=== PATIENT | female | born 1935 | race Caucasian/White ===

== ENCOUNTER 2018-01-05 14:01 | Inpatient (IN) ==
[2018-01-05] MEDS ORDERED: NS 1,000 ML IV ONE (14:23)
[2018-01-05] MEDS ORDERED: INSULIN REGULAR, HUMAN 100 UNIT/ML INJECTION IVP ONE ×2 (14:24→18:05)
--- OUTSIDE RECORDS SUMMARY | 2018-01-05 14:38 | External Medical Summary | Referral Summary ---
:1935 Author Organization [facility], [place] Address [address] [place] [address] [place] [id number] Care Team Providers Name Role Phone Lj Claros V Primary Care Physician Encounter VC Date(s): 11/14/16 - 11/14/16 [facility] [place] [phone]- [place] Discharge Diagnosis: Urine frequency Discharge Diagnosis: Benign essential hypertension Discharge Diagnosis: Medication monitoring encounter Discharge Diagnosis: Osteoarthrosis Discharge Diagnosis: Polypharmacy Discharge Diagnosis: Diabetic retinopathy Discharge Diagnosis: Diabetic neuropathy Discharge Diagnosis: Peripheral edema Discharge Diagnosis: At risk for noncompliance Discharge Disposition: 01-Home or Self Care Attending Physician: Lj Claros MD Admitting Physician: Lj Claros MD Vital Signs Most recent to oldest [Reference Range]: 1 Peripheral Pulse Rate [60-100 bpm] 89 bpm (11/14/16 2:52 PM) Respiratory Rate [14-20 br/min] 18 br/min (11/14/16 2:52 PM) Blood Pressure [90-140/60-90 mmHg] 154/70 mmHg *HI* (11/14/16 2:52 PM) SpO2 98 % (11/14/16 2:52 PM) Problem List Condition Effective Dates Status Health Status Informant Allergy(Confirmed) Active Benign essential Active hypertension(Confirmed) Diabetes W/o Complication Type Active 2(Confirmed) Diabetic retinopathy(Confirmed) Active Osteoarthrosis Lower Leg(Confirmed) Active Overweight(Confirmed) Active Allergies, Adverse Reactions, Alerts No Known Allergies Medications aspirin 81 mg, Oral, Daily, 0 Refill(s) Start Date: 12/23/13 Status: OrderedBD ULTRA-FINE NDL 12.0EET21K See Instructions, USE ONE FOUR TIMES A DAY, # 100 unknown unit, 5 Refill(s), eRx : [facility] #[id number], USE ONE FOUR TIMES A DAY Start Date: 01/08/16 Status: OrderedBD ULTRA-FINE NDL 12.4IQF26C See Instructions, USE ONE FOUR TIMES A DAY, # 100 unknown unit, 4 Refill(s), eRx : [facility] #[id number], USE ONE FOUR TIMES A DAY Start Date: 10/23/16 Status: OrderedBD ULTRA-FINE NDL 12.2JFJ54R BD ULTRA-FINE NDL 12.6XEJ45V, See Instructions, USE PEN NEEDLE FOUR TIMES A DAY. DX E11.8, # 1 boxes, 3 Refill(s), Pharmacy: [facility] #[id number], USE PEN NEEDLE FOUR TIMES A DAY. DX E11.8 Start Date: 05/19/15 Status: OrderedBD ULTRAFINE NEEDLES BD ULTRAFINE NEEDLES, See Instructions, USE PEN NEEDLE FOUR TIMES DAILY. DX: 250.02, # 1 boxes, 2 Refill(s), Pharmacy: [facility] #[id number], USE PEN NEEDLE FOUR TIMES DAILY. DX: 250.02 Start Date: 11/09/14 Status: Ordereddicyclomine 10 mg oral capsule 10 mg 1 caps, Oral, q6hr, as needed., # 360 caps, 1 Refill(s), Pharmacy: [facility], 1 caps Oral q6hr,Instr:as needed. Start Date: 05/16/15 Status: OrderedGlucometer strips (DME) DME Item Pt. uses onetouch ultra test strips 2 times a day. DX E11.8, See Instructions, # 100 Each, 0 Refill(s), Pharmacy: [facility] #[id number], Pt. uses onetouch ultra test strips 2 times a day. DX E11.8, Supply Start Date: 06/07/16 Status: OrderedHumaLOG KwikPen 100 units/mL subcutaneous solution See Instructions, INJECT 30 TO 35 UNITS THREE TIMES DAILY BEFORE MEALS e11.9, # 10 mL, 3 Refill(s), Pharmacy: [facility] #[id number], INJECT 30 TO 35 UNITS THREE TIMES DAILY BEFORE MEALS e11.9 Start Date: 06/28/16 Status: OrderedLantus Solostar Pen 100 units/mL subcutaneous solution See Instructions, INJECT 72 UNITS SUBCUTANEOUSLY AT BEDTIME, # 10 mL, 1 Refill(s ), Pharmacy: [facility] #[id number], INJECT 72 UNITS SUBCUTANEOUSLY AT BEDTIME Start Date: 11/14/16 Status: OrderedLotrel 5 mg-10 mg oral capsule See Instructions, 1 caps Oral Daily, # 90 caps, 3 Refill(s), Pharmacy: [facility] Start Date: 05/16/15 Status: OrderedMiscellaneous DME DME Item BD ULTRA FINE NDL 12.9XLA46J USE 1 PEN NEEDLE QID DX: 250.02 [facility], See Instructions, # 1 Each, 2 Refill(s), Pharmacy: [facility] # [id number], BD ULTRA FINE NDL 12.2UUQ54R; USE 1 PEN NEEDLE QID ; DX: 250.02; [facility], Supply Start Date: 12/29/13 Status: OrderedONETOUCH ULTRA TEST STRIPS See Instructions, TEST TWO TIMES A DAY, DX E11.8, # 100 strip, 2 Refill(s), eRx : [facility] #[id number], TEST TWO TIMES A DAY, DX E11.8 Start Date: 06/07/16 Status: Orderedpravastatin 40 mg oral tablet 40 mg 1 tabs, Oral, Bedtime (once a day), # 90 tabs, 1 Refill(s), Pharmacy: [facility], 1 tabs Oral Bedtime (once a day) Start Date: 06/02/15 Status: Orderedvitamin A See Instructions, 8,000 units daily by oral route, 0 Refill(s) Start Date: 12/23/13 Status: OrderedVitamin B-12 1,000 mcg, 0 Refill(s) Start Date: 12/23/13 Status: OrderedVitamin C 500 mg, Oral, Daily, 0 Refill(s) Start Date: 12/23/13 Status: Orderedvitamin E 100 Intl_Units, Oral, Daily, 0 Refill(s) Start Date: 12/23/13 Status: OrderedZaroxolyn 5 mg oral tablet 5 mg 1 tabs, Oral, Daily, # 90 tabs, 0 Refill(s), Pharmacy: [facility] # [id number], 1 tabs Oral Daily Start Date: 04/17/16 Status: OrderedZimmerwraps Zimmerwraps, See Instructions, Apply wrap as instructed in the morning and remove in the evening., #2 Each, 0 Refill(s) Start Date: 04/17/16 Status: Ordered Results Chemistry Most recent to oldest [Reference Range]: 1 Sodium Lvl [135-144 mEq/L] 135 mEq/L (11/14/16 3:54 PM) Potassium Lvl [3.5-5.2 mEq/L] 4.3 mEq/L (11/14/16 3:54 PM) Chloride [99-111 mEq/L] 102 mEq/L (11/14/16 3:54 PM) CO2 [22-31 mEq/L] 22 mEq/L (11/14/16 3:54 PM) AGAP [3-20 mEq/L] 11 mEq/L (11/14/16 3:54 PM) BUN [10-20 mg/dL] 19 mg/dL (11/14/16 3:54 PM) Glucose Lvl [70-99 mg/dL] 388 mg/dL *HI* (11/14/16 3:54 PM) Creatinine Lvl [0.57-1.11 mg/dL] 1.16 mg/dL *HI* (11/14/16 3:54 PM) eGFR [>60 mL/min] 45 mL/min 1 *ABN* (11/14/16 3:54 PM) Calcium Lvl [8.4-10.2 mg/dL] 9.0 mg/dL (11/14/16 3:54 PM) Hgb A1c [4.1-5.6 %] 11.6 % *HI* (11/14/16 3:54 PM) eAvg Glucose 286.2 mg/dL (11/14/16 3:54 PM) 1Result Comment: Multiply eGFR results by 1.21 for race.Urinalysis Most recent to oldest [Reference Range]: 1 UA Color Yellow (11/14/16 4:46 PM) UA Appear Clear (11/14/16 4:46 PM) UA pH [5.0-8.0] 5.0 (11/14/16 4:46 PM) UA Leuk Est [Negative] Negative (11/14/16 4:46 PM) UA Nitrite [Negative] Negative (11/14/16 4:46 PM) UA Protein [Negative] Negative (11/14/16 4:46 PM) UA Glucose [Negative] Pos 3+ *ABN* (11/14/16 4:46 PM) UA Ketones [Negative] Negative (11/14/16 4:46 PM) UA Urobilinogen [<1.0 mg/dL] 0.2 mg/dL (11/14/16 4:46 PM) UA Bili [Negative] Negative (11/14/16 4:46 PM) UA Blood [Negative] Negative (11/14/16 4:46 PM) UA Spec Grav [1.003-1.030] 1.035 *HI* (11/14/16 4:46 PM) Type Clean Catch (11/14/16 4:46 PM) Immunizations Given and Recorded Vaccine Date Status Refusal Reason influenza virus vaccine, inactivated 04/17/16 Given influenza virus vaccine, inactivated 05/02/15 Given influenza virus vaccine, live 05/21/13 Given influenza virus vaccine, live 06/18/12 Given pneumococcal 13-valent conjugate vaccine 05/02/15 Given pneumococcal 23-polyvalent vaccine 01/22/11 Recorded tetanus-diphth toxoids (Td) adult/adol 03/10/07 Recorded Procedures Procedure Date Related Diagnosis Body Site Hysterectomy Joint replacement Knee replacement L Knee replacement R Tonsillectomy Social History Social History Type Response Smoking Status Never smoker Assessment and Plan Extracted from: Title: New Patient Visit Author: Lj Claros MD Date: 11/14/16 Impression and Plan Diagnosis Osteoarthrosis (QWB88-AJ M19.90, Discharge, Medical). Peripheral edema (LAP61-XD R60.9, Discharge, Medical). Urine frequency (WZX56-UJ R35.0, Discharge, Medical). Polypharmacy (XKJ37-FH Z79.899, Discharge, Medical). At risk for noncompliance (ILD53-RW Z91.89, Discharge, Medical). Diabetic neuropathy (EIQ04-UJ E11.40, Discharge, Medical). Medication monitoring encounter (BYV81-OY Z51.81, Discharge, Medical). Benign essential hypertension (REZ90-XU I10, Discharge, Medical). Diabetic retinopathy (WFU44-SI E11.319, Discharge, Medical). Orders Orders (Selected) Outpatient Orders Future (On Hold) Albumin/Creatinine Ratio, Urine: BMP: Hgb A1c: Urinalysis with Culture if Indicated: .
[2018-01-05] MEDS ORDERED: INSULIN REGULAR, HUMAN 100 UNIT/ML INJECTION SQ SCH ×2 (16:15→17:26)
--- NOTE | 2018-01-05 16:33 | Emergency Department Report ---
Weakness HPI - General Chief complaint: Medical Emergency Stated complaint: High blood sugar, weakness Source: patient, family Mode of arrival: EMS Limitations: no limitations - History of Present Illness HPI Narrative: PT presents from home per EMS after she developed increasing weakness and was unable to get herself off the toilet nor could her assist. PT is a known diabetic and EMS had a BG of 585. PT began receiving fluids. She reports she has been taking her medications including her insulin. She denies fever, cough, nausea, vomiting, or diarrhea. She does report eating lots of BBQ. Complaint: generalized weakness Onset (ago): hour(s) - Related Data Home Medications Medication Instructions Recorded Confirmed aspirin 81 mg tablet,delayed 81 mg PO .DAILY @ NOON tab 03/19/17 01/05/18 release Mapap Extra Strength 500 mg tablet 1,000 mg PO TID 04/23/17 01/05/18 Insulin Glargine,Hum.rec.anlog 100 unit SQ PM 01/05/18 01/05/18 [Basaglar Kwikpen U-100] Simvastatin [Zocor] 40 mg PO HS 01/05/18 01/05/18 Previous Rx's Medication Instructions Recorded Lotrel (amlodipine 5 mg-benazepril 1 cap PO DAILY #90 cap 02/11/17 10 mg) capsule Humalog KwikPen (insulin lispro) 32 unit SQ TID #30 ml 07/15/17 100 unit/mL SQ PEN Allergies Allergy/AdvReac Type Severity Reaction Status Date / Time cephalexin Allergy Intermediate RASH Verified 01/05/18 14:29 codeine Allergy Unknown Restlessnes Verified 01/05/18 14:29 s Review of Systems All systems: reviewed and negative except as stated Constitutional: Reports: as per HPI Respiratory: Reports: as per HPI Gastrointestinal: Reports: as per HPI Musculoskeletal: Reports: as per HPI Neurological: Reports: as per HPI Endocrine: Reports: as per HPI PFS Patient Stated Medical History Peripheral Neuropathy Yes Transient Ischemic Attacks ( Yes TIA) Other HEENT Yes: LASAR FOR BROKEN VESSEL Congestive Heart Failure Yes Hypertension Yes Pneumonia Yes Diabetes Mellitus Type 2 Yes Gastroesophageal Reflux Yes: FROM SOME FOODS Disease Hx Incontinence Yes: SOME Hx Urinary Tract Infection Yes Osteoarthritis Yes: KNEES Other Infectious Yes: STAPH TO KNEE INCISION Post Menopausal Yes Clinic Medical History (Last Reviewed 06/11/17 @ 13:05 by Estephania Donahue Melissa) Diabetic retinopathy associated with type 2 diabetes mellitus (Chronic Medical) Body mass index (BMI) of greater than 35 to 39.9 with comorbidity (Chronic Medical) Osteoarthritis of knees, bilateral (Chronic Medical) Low back pain (Chronic Medical) Decreased mobility (Chronic Medical) Hypercholesterolemia (Chronic Medical) Congestive heart failure (CHF) (Chronic Medical) History of TIA (transient ischemic attack) (Chronic Medical) Hypertension (Chronic Medical) Type 2 diabetes mellitus (Chronic Medical) TIA (transient ischemic attack) (Acute Medical) Medical History Updates: DM. TIA. CVA. HTN Surgical History: tonsillectomy, Right total knee and partial knee on left, hysterectomy, lumpectomy right breast Family History: Family History (Last Reviewed 06/11/17 @ 13:05 by Estephania Donahue Melissa) Father Heart attack Maternal Grandmother Diabetes Mother Diabetes Maternal Grandfather Rheumatoid arthritis - Social History Smoking status: Never smoker Substance use type: does not use Alcohol intake: never Alcohol intake frequency: does not drink Physical Exam - Limitations Limitations: no limitations, other (dementia) - General General appearance: alert, other - Normal Exams: Chest/Respirations:: Clear all terrell, with good airflow, and symmetry bilaterally Cardiovascular:: Regular rate and rhythm, without murmur or gallop, Pulses 2+ all extremities, capillary refill, <2 seconds all extremities Abdomen:: Bowel sounds positive, soft, non-tender, non-distended Musculoskeletal:: No tenderness, or deformity noted, good range of motion, all extremities Neurological:: Patient is alert, motor/sensory/cerebellar, exams w/o gross deficits, to observation Psychiatric:: Patient exhibits, appropriate attention (pt is angry and becomes frustrated with ) - Skin Skin exam: Present: warm, dry - Expanded Skin Exam Type of lesion: Present: rash, other (pressure ulcer) Distribution: other (potential pressure ulcer to right buttock, rasied, scabbed , blanches, yeast to entire gluteal fold) Course Vital Signs Temperature 98.3 F 01/05/18 14:05 Pulse Rate 88 01/05/18 14:05 Respiratory Rate 28 H 01/05/18 14:05 Blood Pressure 141/63 H 01/05/18 14:05 Pulse Oximetry 95 01/05/18 14:05 Temperature 98.3 F 01/05/18 14:05 Pulse Rate 78 01/05/18 16:08 Respiratory Rate 18 01/05/18 16:08 Blood Pressure 136/61 01/05/18 16:08 Pulse Oximetry 97 01/05/18 16:08 Weakness - MDM Narrative Medical decision making narrative: PT showing increasing dementia difficulties throughout stay. PT now reports she may not have taken her insulin this afternoon. states he has had increased difficulties taking care of pt at home and that her BG normally runs about 300. PT has strong body odor and food stained clothing. PT has obvious severe yeast to entire gluteal fold and potential pressure ulcer to right buttock. Nystatin provided. PT has received a total of 1300cc of NS and a total of 30 units of regular insulin for BG. Hospitalist notified of need for admission. Care coordination contacted for need for discharge planning. Plan discussed with pt and family who voice understanding. - Differential Diagnosis Differential diagnosis: Likely: anemia, hypothyroidism, rhabdomyolysis, sepsis ( hyperglycemia, keto acidosis) - Lab Data Attestation: I reviewed the patient's lab results. Result diagrams: 01/05/18 14:21 01/05/18 14:21 Lab Results 01/05/18 01/05/18 01/05/18 Range/Units 14:04 14:21 14:21 WBC 6.6 (4.5-11.0) T/MM3 RBC 4.51 (4.00-5.20) M/MM3 Hgb 14.2 (12-16) GM/DL Hct 40.8 (36-46) % MCV 90.5 (80-100) UM3 MCH 31.5 (26-34) UUG MCHC 34.8 (31-37) GM/DL RDW Std Deviation 42.9 (36.9-50.2) FL Plt Count 229 (130-400) T/MM3 MPV 10.0 (9.4-12.4) UM3 Immature Gran % (Auto) 0.6 H (0.0-0.5) % Neut % (Auto) 68.3 H (33-66) % Lymph % (Auto) 24.2 (23-45) % [place] % (Auto) 5.6 (0-9.0) % Eos % (Auto) 0.8 (0-4) % Baso % (Auto) 0.5 (0-2) % Neut # (Auto) 4.5 (1.8-7.7) T/MM3 Lymph # (Auto) 1.6 (1-4.8) T/MM3 [place] # (Auto) 0.4 (0-0.8) T/MM3 Eos # (Auto) 0.1 (0-0.5) T/MM3 Baso # (Auto) 0.0 (0-0.2) T/MM3 Abs Immat Gran (auto) 0.04 H (0.00-0.03) T/MM3 Turbidity < 20 (0-20) Sodium 139 (136-146) MEQ/L Potassium 4.3 (3.6-5) MEQ/L Chloride 102 (98-107) MEQ/L Carbon Dioxide 14 L (22-30) MEQ/L Anion Gap 23 H (5-15) meq/L BUN 20.0 H (7-17) MG/DL Creatinine 0.9 (0.7-1.2) mg/dL GFR Calculation 60 BUN/Creatinine Ratio 22 (6-26) RATIO Glucose 604 H* (65-110) MG/DL Glucometer 478 (65-110) mg/dL Calculated Osmolality 299 H (261-280) MOSM/KG Calcium 8.9 (8.4-10.2) MG/DL Total Bilirubin 0.50 (0.20-1.30) MG/DL Icterus Index < 2 (0-7) AST 17 (14-36) U/L ALT 15 (1-35) U/L Alkaline Phosphatase 117 (38-126) U/L Total Protein 7.1 (6.3-8.2) g/dL Albumin 4.3 (3.5-5.0) g/dL Globulin 2.8 (2.4-3.6) G/DL Albumin/Globulin Ratio 1.5 (1.1-2.2) RATIO Specimen Hemolysis < 15 (0-25) // Range/Units 15:09 WBC (4.5-11.0) T/MM3 RBC (4.00-5.20) M/MM3 Hgb (12-16) GM/DL Hct (36-46) % MCV (80-100) UM3 MCH (26-34) UUG MCHC (31-37) GM/DL RDW Std Deviation (36.9-50.2) FL Plt Count (130-400) T/MM3 MPV (9.4-12.4) UM3 Immature Gran % (Auto) (0.0-0.5) % Neut % (Auto) (33-66) % Lymph % (Auto) (23-45) % [place] % (Auto) (0-9.0) % Eos % (Auto) (0-4) % Baso % (Auto) (0-2) % Neut # (Auto) (1.8-7.7) T/MM3 Lymph # (Auto) (1-4.8) T/MM3 [place] # (Auto) (0-0.8) T/MM3 Eos # (Auto) (0-0.5) T/MM3 Baso # (Auto) (0-0.2) T/MM3 Abs Immat Gran (auto) (0.00-0.03) T/MM3 Turbidity (0-20) Sodium (136-146) MEQ/L Potassium (3.6-5) MEQ/L Chloride (98-107) MEQ/L Carbon Dioxide (22-30) MEQ/L Anion Gap (5-15) meq/L BUN (7-17) MG/DL Creatinine (0.7-1.2) mg/dL GFR Calculation BUN/Creatinine Ratio (6-26) RATIO Glucose (65-110) MG/DL Glucometer 455 (65-110) mg/dL Calculated Osmolality (261-280) MOSM/KG Calcium (8.4-10.2) MG/DL Total Bilirubin (0.20-1.30) MG/DL Icterus Index (0-7) AST (14-36) U/L ALT (1-35) U/L Alkaline Phosphatase (38-126) U/L Total Protein (6.3-8.2) g/dL Albumin (3.5-5.0) g/dL Globulin (2.4-3.6) G/DL Albumin/Globulin Ratio (1.1-2.2) RATIO Specimen Hemolysis (0-25) Critical Care Time Critical Care Time: Yes (BG > 600) Total Critical Care Time: 38 Attestation: 38 minutes of critical care time assessed 2/2 complex medical decision making, need to repeat assesment, potential for decompensation, difficulty in continued care due to dementia. Updates to family, review of diagnostics and phone calls for admission Disposition Clinical Impression: Hyperglycemia due to type 1 diabetes mellitus, Yeast infection Dementia Qualifiers: Dementia type: unspecified type Dementia behavioral disturbance: with behavioral disturbance Qualified Code(s): F03.91 - Unspecified dementia with behavioral disturbance Disposition: 02 To [facility] Acute Care Condition: Stable Time of Disposition: 18:07 - Seen By: midlevel
[2018-01-05 18:35] VITALS: BMI 37.6
--- NOTE | 2018-01-05 18:51 | History & Physical Report ---
History of Present Illness Date: 01/05/18 Chief complaint: Elevated BS, weakness HPI: Patient is an 82 yo diabetic female who lives at home with her . She was brought in to ED by EMS due to increasing weakness. Reportedly, she was so weak , she couldn't get herself off the toilet despite her 's assistance. Glucose by EMS was 585. Pt denies missing any insulin doses. She reports she checks her sugars 1-2 x a day at home. She currently denies any sxs other than weakness and some pain in her buttocks/shailesh area due to yeast rash. She sees Hien Westfall APRN for her primary care. Her most recent recorded A1C was >14 % on 06/11/17. In ER, her glucose was 604, CO2 low at 14, + ketones in urine. Review of Systems All systems PM: 10-point ROS was reviewed, no additional remarkable complaints except (weakness, discomfort from yeast in shailesh-area) Past Medical History Medical History: Medical History (Last Reviewed 06/11/17 @ 13:05 by COSMO Daley) Diabetic retinopathy associated with type 2 diabetes mellitus (Chronic) Body mass index (BMI) of greater than 35 to 39.9 with comorbidity (Chronic) Osteoarthritis of knees, bilateral (Chronic) Low back pain (Chronic) Decreased mobility (Chronic) Hypercholesterolemia (Chronic) Congestive heart failure (CHF) (Chronic) History of TIA (transient ischemic attack) (Chronic) Hypertension (Chronic) Type 2 diabetes mellitus (Chronic) TIA (transient ischemic attack) Medical History Updates: DM. TIA. CVA. HTN Surgical History: tonsillectomy, Right total knee and partial knee on left, hysterectomy, lumpectomy right breast Family History: Family History Father Heart attack Maternal Grandmother Diabetes Mother Diabetes Maternal Grandfather Rheumatoid arthritis Family History: As Above - Social History Smoking status: Never smoker Substance use type: does not use Alcohol intake frequency: does not drink Housing: house Household members: spouse Current occupational status: retired Social history: Hien Westfall APRN - PCP Medications Home Medications Medication Instructions Recorded Confirmed Type Lotrel (amlodipine 5 mg-benazepril 1 cap PO DAILY #90 cap 02/11/17 01/05/18 Rx 10 mg) capsule aspirin 81 mg tablet,delayed 81 mg PO .DAILY @ NOON tab 03/19/17 01/05/18 History release Mapap Extra Strength 500 mg tablet 1,000 mg PO TID 04/23/17 01/05/18 History Humalog KwikPen (insulin lispro) 32 unit SQ TID #30 ml 07/15/17 01/05/18 Rx 100 unit/mL SQ PEN Insulin Glargine,Hum.rec.anlog 100 unit SQ PM 01/05/18 01/05/18 History [Basaglar Kwikpen U-100] Simvastatin [Zocor] 40 mg PO HS 01/05/18 01/05/18 History Allergies Allergy/AdvReac Type Severity Reaction Status Date / Time cephalexin Allergy Intermediate RASH Verified 01/05/18 14:29 codeine Allergy Unknown Restlessnes Verified 01/05/18 14:29 s Exam Vital Signs: Temperature 96.6 F L 01/05/18 18:28 Pulse Rate 82 01/05/18 18:28 Respiratory Rate 18 01/05/18 18:28 Blood Pressure 160/90 H 01/05/18 18:28 Pulse Oximetry 97 01/05/18 18:28 Height/Weight/BMI: Height 1.6 m Weight 96.4 kg Body Mass Index 37.6 - Constitutional Present: no acute distress, well nourished, well developed - Routine HEENT Exam Head: Present: normocephalic, atraumatic Eye: Present: EOMI, PERRL ENT: Present: mucous membranes moist, oropharynx clear - Routine Neck Exam Present: supple. Absent: lymphadenopathy, thyromegaly - Routine Respiratory Exam Present: CTA bilaterally. Absent: wheezes - Routine Cardiovascular Exam Present: no murmur, irregularly irregular - Routine Abdominal Exam Present: soft, normoactive bowel sounds. Absent: tenderness, distended - Routine Extremities Exam Present: edema (tr b/l), normal capillary refill Comments: Onychomycotic changes to toenails - Routine Skin Exam Present: dry, warm Comments: erythema extending from gluteal crease to vulva. Scabbing to buttock with area of erythema likely r/t pressure - Routine Neurological Exam Present: alert, oriented X3, CN II-XII intact, normal speech - Routine Psychiatric Exam Present: normal affect, cooperative Results - Labs CBC & Chem 7: 01/05/18 14:21 01/05/18 19:08 Labs: Laboratory Tests 01/05/18 16:12 Urine Color Yellow Urine Clarity Sl cloudy Urine pH 5.0 Ur Specific [place] 1.020 Urine Protein Trace A Urine Glucose (UA) 3+ A Urine Ketones 3+ A Urine Occult Blood 1+ A Urine Nitrate Negative Urine Bilirubin Negative Urine Urobilinogen 0.2 Ur Leukocyte Esterase Trace A Urine RBC 10-20 H Urine WBC 5-10 H Urine WBC Clumps Few Ur Squamous Epith Cells 10-20 Urine Bacteria Trace H Assessment and Plan (1) DM (diabetes mellitus) type 2, uncontrolled, with ketoacidosis Current visit: Yes Status: Acute Assessment and Plan: Assessment Uncontrolled DM, Type 2 on insulin (A1C >14% 06/15) Mild ketoacidosis Hyperosmolarity Yeast infection extending from gluteal crease to vulva Diabetic retinopathy Morbid obesity - BMI 37.6 CHF-LVH/diastolic dysfunction, EF 60% on echo 02/13 HLD HTN Osteoarthritis of b/l knees H/o TIA Plan Admit for correction of BS's and close monitoring. Stay expected to exceed two overnights for correction of BS's and managing her comorbidities listed above. 30U insulin given in ER. 1300cc's NS given in ER. BS down to 299 on admission to floor, down from 604 in ER. Will check BMP stat to evaluate current potassium level given the administration of insulin in ER and to determine further fluids. Continue her glargine 100U q hs. Further insulin and IVF orders per Dr. Calloway. Diflucan 200 qd for yeast infection. Will also use topical Nystatin under barrier cream. Check EKG -irregular rhythm on exam. R/o a-fib. Check A1C, betahydroxybutyrate, Mg. Continue home meds for HTN/HLD Lovenox for VTE ppx. Full Code Hien Westfall SWAGE TENDER - PCP DVT Prophylaxis: Lovenox Resuscitation Status: Full Code - Physician Narrative Physician: Gayatri Calloway MD Narrative: Date: 01/05/18 Time: 2104 I have independently evaluated and examined this patient. I reviewed the chart, the patient's history, and the SWAGE TENDER/PA's documented findings as above. We discussed and formulated the assessment and plan as above with additions as below: Mrs. Blair was seen with her at bedside earlier this evening. Her reports that they were going to see her usual provider for a wound on her bottom when she was simply too weak to get up from the toilet. Both and patient are insistent that the patient faithfully takes her insulin 4 times a day and the patient suggests that she check her blood sugars at home at least occasionally although her indicates that this is an uncommon event and that blood sugars are often 400 or higher when checked. Patient does have a history of diabetic retinopathy requiring laser therapy but denies neuropathy or known nephropathy. Diabetes was diagnosed in 1987 and she was treated with oral agents for the first 5 years before insulin therapy was initiated. Patient appears to be moderately forgetful and provides the more detailed history. NAD, forgetful Respirations nonlabored, shallow inspiration, anterior breath sounds clear Regular rhythm, S1-S2 Fungal dermatitis/intertrigo in the groin creases Lower extremity edema but patient reports awareness of cold/light touch on the soles of each foot Initial blood sugar 604 dropping to 329 5 hours later; bicarbonate 14--> 17; remainder of electrolytes unremarkable. Osmolality 299--> 290. Beta hydroxybutyrate 4.2; +3 ketones in the urine in conjunction with trace protein and +3 glucose. Uncontrolled diabetes mellitus with moderate hyperosmolality and mild ketoacidosis. Continue management with IV fluids and subcutaneous insulin. Reported home dose of 190 units of insulin daily and poor control described suggests high degree of insulin resistance and I believe patient would benefit from addition of second agent. Patient's indicated interest in seeing a document control specialist-Dr. Bhat will be consulted. Diabetes education and dietary education will also be consulted. Wound care consulted-will attempt directly visualize wound on buttock tomorrow however patient needed to go to the restroom at the time of my assessment. Discussed with Dr. Garcia; old records reviewed, EKG pending. Hospital Course Summary Disclaimer: The visit summary below is not to be considered part of the above Progress Note. Hospital Course: 01/05/18 Admit for correction of BS's and close monitoring. Stay expected to exceed two overnights for correction of BS's and managing her comorbidities listed above. 30U insulin given in ER. 1300cc's NS given in ER. BS down to 299 on admission to floor, down from 604 in ER. Will check BMP stat to evaluate current potassium level given the administration of insulin in ER and to determine further fluids. Continue her glargine 100U q hs. Further insulin and IVF orders per Dr. Calloway. Diflucan 200 qd for yeast infection. Will also use topical Nystatin under barrier cream. Check EKG -irregular rhythm on exam. R/o a-fib. Check A1C, betahydroxybutyrate, Mg. Continue home meds for HTN/HLD Lovenox for VTE ppx. Full Code Hien Westfall APRN - PCP
[2018-01-05] MEDS ORDERED: ASPIRIN *EC* 81 MG TABLET PO SCH (19:00)
[2018-01-05] MEDS: NYSTATIN OINTMENT 15gm TP SCH (20:41)
[2018-01-05] MEDS: NS with KCL 20 mEq 1,000 ML IV SCH (22:43)
[2018-01-05] MEDS: ACETAMINOPHEN 500 MG TABLET PO SCH (22:48)
[2018-01-05] MEDS: SIMVASTATIN 40 MG TABLET PO SCH (22:48)
[2018-01-05] MEDS: INSULIN ASPART 100unit/ml INJECTION SQ PRN (22:55)
[2018-01-05] MEDS: INSULIN GLARGINE 100unit/ml INJECTION SQ SCH (23:25)
[2018-01-05] MEDS: FLUCONAZOLE 100 MG TABLET PO SCH (23:26)
[2018-01-06] MEDS: INSULIN ASPART 100unit/ml INJECTION SQ PRN ×3 (00:10→16:00)
[2018-01-06] MEDS: NS with KCL 20 mEq 1,000 ML IV SCH ×2 (06:44→14:53)
--- NOTE | 2018-01-06 09:13 | Progress Note ---
- Date 01/06/18 Subjective: Patient is seen this morning during breakfast. She reports she is feeling fine. When asked why she came into the hospital, she replies that she does not know. She does know she is in [place]. No chest pain, shortness of breath, nausea, vomiting, chills or fever. Objective Vital signs: Temperature 97.1 F 01/06/18 07:54 Pulse Rate 80 01/06/18 07:54 Respiratory Rate 16 01/06/18 07:54 Blood Pressure 134/60 01/06/18 07:54 Pulse Oximetry 96 01/06/18 07:54 Height/Weight/BMI: Height 1.6 m Weight 92.3 kg Body Mass Index 37.6 - Constitutional Present: no acute distress, well nourished, well developed - Routine HEENT Exam Head: Present: normocephalic, atraumatic - Routine Respiratory Exam Present: CTA bilaterally. Absent: wheezes - Routine Cardiovascular Exam Present: no murmur, irregular rhythm - Routine Abdominal Exam Present: soft, non distended, non tender - Routine Extremities Exam Present: edema (trace bilateral), normal capillary refill - Routine Skin Exam Present: dry, warm - Routine Neurological Exam Present: alert, normal speech - Routine Lymphatic Exam Lymphatic: Absent: adenopathy - Routine Psychiatric Exam Present: normal affect, cooperative Results - Labs CBC & Chem 7: 01/06/18 06:28 01/06/18 06:28 Assessment and Plan (1) DM (diabetes mellitus) type 2, uncontrolled, with ketoacidosis Current visit: Yes Status: Acute Assessment and Plan: Assessment Uncontrolled DM, Type 2 on insulin (A1C >15% on admission) Mild ketoacidosis Hyperosmolarity Yeast infection extending from gluteal crease to vulva Diabetic retinopathy Morbid obesity - BMI 37.6 CHF-LVH/diastolic dysfunction, EF 60% on echo 02/13 HLD HTN Osteoarthritis of b/l knees H/o TIA Hypokalemia, not POA Plan Blood sugars much improved today. Fasting blood sugar is 100. She continues on sliding scale insulin at the present time and was given her basal insulin [address] Bhat has seen patient this morning -awaiting his recommendations. Diabetes and dietary education have been ordered. Wound team will evaluate sore on buttocks. Nursing reports vulvar/groin symptoms worsened with the nystatin cream. Will switch to powder. Continues on Diflucan. Potassium 3.4. Replacement given. CO2 and osmolality have normalized. EKG performed last evening for irregular rhythm revealed normal sinus rhythm with frequent PACs. Vital signs are stable. Consider decreasing or discontinuing IV fluids later today if patient is taking by mouth well. PT/OT consults. DVT Prophylaxis: Lovenox Resuscitation Status: Full Code - Physician Narrative Physician: Gayatri Calloway MD Narrative: Date: 01/06/18 Time: 2149 I have independently evaluated and examined this patient. I reviewed the chart, the patient's history, and the DATA PROCESSOR/PA's documented findings as above. We discussed and formulated the assessment and plan as above with additions as below: Mrs. Blair was seen late in the afternoon. She denied any concerns and indicated her appetite was good. Her was not present at the time of my evaluation. NAD, pleasantly confused Respirations nonlabored, good airflow, breath sounds clear A1c > 15 Blood sugar this evening [address] Bhat earlier today, metformin added to her regimen. Generalized weakness, shelter recommended by physical therapy. Wound Care reports Mepilex dressing applied to sacral irritation, offloading recommended however patient refuses to reposition because she likes being on her back. Hospital Course Summary Disclaimer: The visit summary below is not to be considered part of the above Progress Note. Hospital Course: 01/05/18 Admit for correction of BS's and close monitoring. Stay expected to exceed two overnights for correction of BS's and managing her comorbidities listed above. 30U insulin given in ER. 1300cc's NS given in ER. BS down to 299 on admission to floor, down from 604 in ER. Will check BMP stat to evaluate current potassium level given the administration of insulin in ER and to determine further fluids. Continue her glargine 100U q hs. Further insulin and IVF orders per Dr. Calloway. Diflucan 200 qd for yeast infection. Will also use topical Nystatin under barrier cream. Check EKG -irregular rhythm on exam. R/o a-fib. Check A1C, betahydroxybutyrate, Mg. Continue home meds for HTN/HLD Lovenox for VTE ppx. Full Code Hien Westfall, DATA PROCESSOR - PCP 01/06/18 Blood sugars much improved today. Fasting blood sugar is 100. She continues on sliding scale insulin at the present time and was given her basal insulin [address] Bhat has seen patient this morning -awaiting his recommendations. Diabetes and dietary education have been ordered. Wound team will evaluate sore on buttocks. Nursing reports vulvar/groin symptoms worsened with the nystatin cream. Will switch to powder. Continues on Diflucan. Potassium 3.4. Replacement given. CO2 and osmolality have normalized. EKG performed last evening for irregular rhythm revealed normal sinus rhythm with frequent PACs. Vital signs are stable. Consider decreasing or discontinuing IV fluids later today if patient is taking by mouth well. PT/OT consults.
[2018-01-06] MEDS: ACETAMINOPHEN 500 MG TABLET PO SCH ×3 (09:22→20:09)
[2018-01-06] MEDS: ENOXAPARIN 40 MG/0.4 ML INJECTION SQ SCH (09:22)
[2018-01-06] MEDS: AMLODIPINE/BENAZEPRIL 5mg/10mg CAPSULE PO SCH (09:22)
[2018-01-06] MEDS: FLUCONAZOLE 100 MG TABLET PO SCH (09:24)
[2018-01-06] MEDS: NYSTATIN OINTMENT 15gm TP SCH (09:24)
[2018-01-06] MEDS: INSULIN ASPART 100unit/ml INJECTION SQ SCH ×2 (12:07→18:29)
[2018-01-06] MEDS: METFORMIN 500 MG TABLET PO SCH ×2 (12:10→18:28)
--- NOTE | 2018-01-06 14:29 | Wound Care Progress Note ---
Wound Center Progress Note: Pt is a very pleasant lady who according to her has had this area on her bottom for months. At this time on the outter edge of the gluteal clave on the left side pt has a raised area 5 x 1.5 x 0.1. There is no apparent open area so at this time 3 M advanced protect applied to all of bottom, then a saccral mepilex applied. Asked and discussed with pt about staying off her bottom and rolling frequently pt states "no I like being on my back". Education was given to pt and on the need to reposition off back however, pt refused again.
--- NOTE | 2018-01-06 16:29 | Consultation ---
DATE OF CONSULT 01/06/2018 REASON FOR CONSULTATION Uncontrolled type 2 diabetes mellitus. HISTORY OF PRESENT ILLNESS Mrs. Blair is an 82-year-old female who was in her usual state of health until the day of admission when she was unable to gather enough strength to get off the toilet even with the assistance of her . She was taken to the emergency department where she was found to have a glucose level of 604 and to be in mild ketoacidosis with a CO2 of 14 and anion gap of 19. She was given IV fluids and insulin and by the time of her move to a hospital bed her glucose was down to 299. Her ketoacidosis rapidly cleared by later that same day. She reports that she had been feeling a little weak. She has had diabetes for at least ten years but is a fairly poor historian. She had reportedly not missed any of her usual insulin doses consisting of 32 units of NovoLog for meals and 100 units of Lantus at bedtime. Her blood sugars, however, usually ran over 200 at home. Her HbA1c on admission was greater than 15. ALLERGIES Codeine. Cephalexin. PAST MEDICAL HISTORY Type 2 diabetes mellitus. Hypertension. Status post hysterectomy. FAMILY HISTORY Type 2 diabetes mellitus and myocardial infarction. SOCIAL HISTORY The patient does not use alcohol or tobacco. REVIEW OF SYSTEMS Remarkable for some dizziness, dry mouth and dry skin. She has had a perineal rash. She has had peripheral edema. She complains of some dizziness. She has had no nausea, vomiting, diarrhea or constipation. She does report nocturia several times a night. She has had weakness and fatigue. She denies paresthesias in her feet. PHYSICAL EXAM VITAL SIGNS: Blood pressure 134/60, afebrile. HEENT: Remarkable for dry lips and mouth. NECK: Without thyromegaly. LUNGS: Clear. HEART: Irregular rhythm with normal rate. ABDOMEN: Normal bowel sounds, nontender without masses or organomegaly. EXTREMITIES: 2+ pitting pedal edema. LYMPHATICS: No enlarged nodes. NEUROLOGIC: Remarkable for generalized weakness. The grated filament sensation in her feet was absent except beneath the fifth left metatarsal head. LABORATORY Fasting glucose this morning 100. CO2 22. Anion gap 11. ASSESSMENT 1. DKA, mild, resolved. 2. Type 2 diabetes mellitus, uncontrolled. 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 It is quite possible that she would do better using U-500 insulin twice daily. Taking 100 units of Lantus in a single injection site does not give optimum absorption. 3. Diabetic peripheral neuropathy. 4. Hypertension, controlled. 5. Long-term current use of insulin. RECOMMENDATIONS Check TSH to make certain there is no occult influence of hypothyroidism on her glucose intolerance. Start metformin 500 mg b.i.d. with meals and titrate up weekly to 1000 mg b.i.d. If still not controlled, strongly consider switching to U-500 insulin so larger doses can be effectively used. Thank you very much for asking my assistance in caring for this nice lady. I will follow her with you while she remains in the hospital. KAREN
[2018-01-06] MEDS ORDERED: PNEUMOCOCCAL 23 VACCINE 0.5ml INJECTION IM ONE (17:00)
[2018-01-06] MEDS: INSULIN GLARGINE 100unit/ml INJECTION SQ SCH (20:08)
[2018-01-06] MEDS: SIMVASTATIN 40 MG TABLET PO SCH (20:10)
[2018-01-06] MEDS: HYDROMORPHONE 2 MG TABLET PO PRN (21:57)
[2018-01-06] MEDS ORDERED: BISACODYL 10 MG SUPPOSITORY RECTALLY PRN (23:08)
[2018-01-07] MEDS: NS with KCL 20 mEq 1,000 ML IV SCH ×2 (00:03→22:17)
[2018-01-07] MEDS: INSULIN ASPART 100unit/ml INJECTION SQ SCH ×3 (05:52→18:36)
[2018-01-07] MEDS: AMLODIPINE/BENAZEPRIL 5mg/10mg CAPSULE PO SCH ×2 (07:43→08:24)
[2018-01-07] MEDS: HYDROMORPHONE 2 MG TABLET PO PRN ×3 (07:43→16:27)
[2018-01-07] MEDS: FLUCONAZOLE 100 MG TABLET PO SCH ×2 (07:43→08:24)
[2018-01-07] MEDS: ACETAMINOPHEN 500 MG TABLET PO SCH ×4 (07:44→21:21)
[2018-01-07] MEDS: METFORMIN 500 MG TABLET PO SCH ×2 (07:44→18:38)
[2018-01-07] MEDS: ENOXAPARIN 40 MG/0.4 ML INJECTION SQ SCH ×2 (07:45→08:24)
[2018-01-07] MEDS: POLYETHYL GLYCOL 3350 17gm PACKET PO SCH ×2 (07:45→08:24)
--- NOTE | 2018-01-07 07:50 | Endocrinology Progress Note ---
Subjective Principal diagnosis: Type 2 diabetes mellitus Interval history: Still quite weak. Eating well. Exam Vital signs: Temperature 97.4 F 01/06/18 23:39 Pulse Rate 87 01/07/18 07:48 Respiratory Rate 18 01/07/18 07:48 Blood Pressure 117/53 01/07/18 07:48 Pulse Oximetry 91 01/07/18 07:48 Inpatient Medications: Generic Name Dose Route Start Last Admin Trade Name Freq PRN Reason Stop Dose Admin Acetaminophen 1,000 mg 01/05/18 21:00 01/07/18 07:44 Tylenol PO 1,000 mg TID REDD Administration Amlodipine/Benazepril HCl 1 cap 01/06/18 09:00 01/07/18 07:43 Lotrel PO 1 cap DAILY REDD Administration Aspirin 81 mg 01/05/18 19:00 01/07/18 07:43 Ecotrin PO 81 mg .DAILY @ NOON REDD Administration Bisacodyl 10 mg 01/06/18 23:08 Dulcolax RECTALLY DAILY PRN Constipation Enoxaparin Sodium 40 mg 01/06/18 09:00 01/07/18 07:45 Lovenox SQ 40 mg DAILY REDD Administration Fluconazole 200 mg 01/05/18 19:15 01/07/18 07:43 Diflucan 100 Mg Tablet PO 200 mg DAILY REDD Administration Hydromorphone HCl 2 mg 01/06/18 21:47 01/07/18 07:43 Dilaudid PO 2 mg Q4H PRN Administration Pain Potassium Chloride/Sodium Chloride 1,000 mls @ 50 mls/hr 01/05/18 20:30 01/07 00:03 Ns With Kcl 20 Meq Premix IV 50 mls/hr .Q20H REDD Administration Insulin Aspart 3 - 12 unit 01/05/18 21:21 01/06/18 16:00 Novolog SQ 4 unit SS PRN Administration Hyperglycemia Protocol Insulin Aspart 30 unit 01/07/18 06:30 01/07/18 05:52 Novolog SQ 30 unit ACB REDD Administration Insulin Aspart 30 unit 01/06/18 11:30 01/06/18 12:07 Novolog SQ 30 unit ACL REDD Administration Insulin Aspart 30 unit 01/06/18 17:00 01/06/18 18:29 Novolog SQ 30 unit ACS REDD Administration Insulin Glargine 100 unit 01/05/18 20:00 01/06/18 20:08 Lantus SQ 100 unit PM REDD Administration Metformin HCl 500 mg 01/06/18 12:00 01/07/18 07:44 Glucophage PO 500 mg BIDWM REDD Administration Nystatin 1 applic 01/06/18 15:00 01/06/18 20:10 Mycostatin TP 1 applic TID REDD Administration Polyethylene Glycol 17 gm 01/07/18 09:00 01/07/18 07:45 Miralax PO 17 gm DAILY REDD Administration Simvastatin 40 mg 01/05/18 21:00 01/06/18 20:10 Zocor PO 40 mg HS REDD Administration Discontinued Medications Generic Name Dose Route Start Last Admin Trade Name Richie PRN Reason Stop Dose Admin Sodium Chloride 1,000 mls @ 999.9 mls/hr 01/05/18 14:23 01/05/18 15:21 Normal Saline IV 01/05/18 15:22 Infused .Q1H ONE Infusion Insulin Human Regular 5 unit 01/05/18 14:24 01/05/18 14:32 Novolin R IVP 01/05/18 14:25 5 unit O ONE Administration Insulin Human Regular 25 unit 01/05/18 16:15 01/05/18 16:25 Novolin R SQ 25 unit O REDD Administration Insulin Human Regular 5 unit 01/05/18 17:26 01/05/18 18:07 Novolin R SQ Not Given O REDD Insulin Human Regular 5 unit 01/05/18 18:05 01/05/18 18:00 Novolin R IVP 01/05/18 18:06 5 unit O ONE Administration Nystatin 1 applic 01/05/18 16:22 01/05/18 17:30 Mycostatin TP 01/05/18 16:23 1 applic O ONE Administration Nystatin 1 applic 01/05/18 21:00 01/06/18 09:24 Mycostatin TP Not Given TID REDD Pneumococcal Polyvalent Vaccine 0.5 ml 01/06/18 17:00 01/06/18 18:33 Pneumovax 23 IM 01/06/18 17:01 0.5 ml .ONCE ONE Administration Potassium Chloride 40 meq 01/06/18 07:54 01/06/18 09:21 K-Dur 20 Meq Tablet PO 01/06/18 07:55 40 meq O ONE Administration - Constitutional no acute distress - Routine HEENT Exam Head: Present: normocephalic, atraumatic Eye: Present: EOMI ENT: Present: mucous membranes moist - Routine Neck Exam Absent: thyromegaly - Routine Respiratory Exam Absent: dyspnea - Routine Cardiovascular Exam Present: RRR - Routine Abdominal Exam Present: soft, normoactive bowel sounds - Routine Extremities Exam Absent: cyanosis, edema - Routine Skin Exam Present: dry, warm - Routine Neurological Exam Present: alert, oriented X3, motor deficit (generalized weakness without focal findings), moving all extremities - Routine Psychiatric Exam Present: normal affect, normal thought process - Additional findings Additional findings: Laboratory Tests 01/06/18 01/06/18 01/06/18 10:55 14:42 19:57 Glucometer 213 218 116 01/07/18 05:21 Glucometer 72 Assessment and Plan (1) Type 2 diabetes mellitus with hyperglycemia Current visit: Yes Status: Chronic Much better control now. Follow sugars and titrate insulin as needed. Progress Note: Quality - Stroke Onset of Symptoms Time: 08:00
--- NOTE | 2018-01-07 18:08 | Progress Note ---
- Date 01/07/18 Subjective: Patient is seen today resting in bed. She reports she is feeling fine. No chest pain, shortness of breath, nausea or vomiting. Her appetite is good. Her family is interested in her going to IRU for further rehabilitation. They have talked with her and state that they feel like she is more motivated than she was yesterday, now that she has more rested. They understand that if she is not accepted to IRU, then group home unit at a [facility] would be the best option. Her blood sugars are much improved. Objective Vital signs: Temperature 96.8 F 01/07/18 15:50 Pulse Rate 81 01/07/18 15:50 Respiratory Rate 20 01/07/18 15:50 Blood Pressure 135/71 01/07/18 15:50 Pulse Oximetry 98 01/07/18 15:50 Height/Weight/BMI: Height 1.6 m Weight 99.3 kg Body Mass Index 37.6 - Constitutional Present: no acute distress, well nourished, well developed - Routine HEENT Exam Head: Present: normocephalic, atraumatic - Routine Respiratory Exam Present: CTA bilaterally. Absent: wheezes - Routine Cardiovascular Exam Present: no murmur - Routine Abdominal Exam Present: soft, non distended, non tender - Routine Extremities Exam Present: edema (pitting edema in ankles), normal capillary refill - Routine Skin Exam Present: dry, warm - Routine Neurological Exam Present: alert, normal speech - Routine Lymphatic Exam Lymphatic: Absent: adenopathy - Routine Psychiatric Exam Present: normal affect, cooperative Results - Labs CBC & Chem 7: 01/07/18 05:28 01/07/18 05:28 Assessment and Plan Assessment and Plan: Assessment Uncontrolled DM, Type 2 on insulin (A1C >15% on admission) Mild ketoacidosis-resolved Hyperosmolarity-resolved Yeast infection extending from gluteal crease to vulva Diabetic retinopathy Morbid obesity - BMI 37.6 CHF-LVH/diastolic dysfunction, EF 60% on echo 02/13 HLD HTN Osteoarthritis of b/l knees H/o TIA Hypokalemia, not POA-resolved Plan ~Patient is currently on NovoLog 30 mg before each meal and [address] Bhat started metformin 500 mg twice a day and recommends titrating weekly up to 1000 mg twice a day. If blood sugars are not controlled , consider switching to the U-500 insulin twice a day as opposed to large dose of Lantus at bedtime. Blood sugars reviewed. No changes at this time. We'll continue to monitor. ~Wound clinic evaluated patient's buttocks and has recommended 3 M advanced protectant and Mepilex. She has no open sore at this time. Recommend she reposition frequently to keep her weight off of this area. ~Family would like patient to go to IRU, if possible, for further strengthening. does not feel that he can take care of her at home. IRU screen ordered. If she does not qualify for IRU, will proceed with group home unit placement. Potentially discharge tomorrow. ~Labs and vitals are stable. Dr. Bhat's notes reviewed. DC IV fluids. - Physician Narrative Narrative: Date: 01/07/18 Time: 1757 Seen and examined patient on same day as the above note. Agree with note, physical, assessment and plan. Comprehensive physical findings correlate to the above note physician's nursing home assistant Sienna Peres. Exam: Gen.:no apparent distress, morbidly obese although BMI understates this HEENT: normocephalic atraumatic, oral mucosa moderately dry neck: no lymphadenopathy no jugular venous distention respiratory: there to auscultation bilaterally with good excursion cardiovascular: cardiovascular S1 S2 no adventitious murmurs rubs or gallops abdomen/GI: soft nondistended with bowel sounds extremities: good peripheral perfusion with no edema skin/integument: no significant injuries or edema neuro: alert but confused. No focal deficits appreciable psych: mood and affect are appropriate but becomes conversationally lost Labs: reviewed Assessment and plan: diabetes and hyperglycemia are being followed by Dr. Bhat in endocrinology. Glucose seems to be falling quite well with the dosages that she should be receiving at home. This raises the question that her limitations of managing her own medical care probably more profound than her existing social graces. Documented on Dragon speech to text. Efforts to correct speech recognition errors performed, but variation may exist Hospital Course Summary Disclaimer: The visit summary below is not to be considered part of the above Progress Note. Hospital Course: 01/05/18 Admit for correction of BS's and close monitoring. Stay expected to exceed two overnights for correction of BS's and managing her comorbidities listed above. 30U insulin given in ER. 1300cc's NS given in ER. BS down to 299 on admission to floor, down from 604 in ER. Will check BMP stat to evaluate current potassium level given the administration of insulin in ER and to determine further fluids. Continue her glargine 100U q hs. Further insulin and IVF orders per Dr. Calloway. Diflucan 200 qd for yeast infection. Will also use topical Nystatin under barrier cream. Check EKG -irregular rhythm on exam. R/o a-fib. Check A1C, betahydroxybutyrate, Mg. Continue home meds for HTN/HLD Lovenox for VTE ppx. Full Code Hien Westfall, PROCESS IMPROVEMENT SPECIALIST - PCP 01/06/18 Blood sugars much improved today. Fasting blood sugar is 100. She continues on sliding scale insulin at the present time and was given her basal insulin [address] Bhat has seen patient this morning -awaiting his recommendations. Diabetes and dietary education have been ordered. Wound team will evaluate sore on buttocks. Nursing reports vulvar/groin symptoms worsened with the nystatin cream. Will switch to powder. Continues on Diflucan. Potassium 3.4. Replacement given. CO2 and osmolality have normalized. EKG performed last evening for irregular rhythm revealed normal sinus rhythm with frequent PACs. Vital signs are stable. Consider decreasing or discontinuing IV fluids later today if patient is taking by mouth well. PT/OT consults. 01/07/18 ~Patient is currently on NovoLog 30 mg before each meal and [address]. [address] Bhat started metformin 500 mg twice a day and recommends titrating weekly up to 1000 mg twice a day. If blood sugars are not controlled , consider switching to the U-500 insulin twice a day as opposed to large dose of Lantus at bedtime. Blood sugars reviewed. No changes at this time. We'll continue to monitor. ~Wound clinic evaluated patient's buttocks and has recommended 3 M advanced protectant and Mepilex. She has no open sore at this time. Recommend she reposition frequently to keep her weight off of this area. ~Family would like patient to go to IRU, if possible, for further strengthening. does not feel that he can take care of her at home. IRU screen ordered. If she does not qualify for IRU, will proceed with group home unit placement. Potentially discharge montrellorrow. ~Labs and vitals are stable. Dr. Bhat's notes reviewed. DC IV fluids.
[2018-01-07] MEDS: INSULIN GLARGINE 100unit/ml INJECTION SQ SCH (21:20)
[2018-01-07] MEDS: SIMVASTATIN 40 MG TABLET PO SCH (21:21)
[2018-01-07 23:34] VITALS: TEMP 96.3
[2018-01-08 07:25] VITALS: BP 137/69; PULSE 82; O2SAT 99
--- NOTE | 2018-01-08 08:13 | Endocrinology Progress Note ---
Subjective Principal diagnosis: Type 2 diabetes mellitus Interval history: Still weak. Eating well. No diarrhea since starting metformin. Exam Vital signs: Temperature 96.3 F L 01/08/18 07:22 Pulse Rate 82 01/08/18 07:22 Respiratory Rate 17 01/08/18 07:22 Blood Pressure 137/69 01/08/18 07:22 Pulse Oximetry 99 01/08/18 07:22 Inpatient Medications: Generic Name Dose Route Start Last Admin Trade Name Freq PRN Reason Stop Dose Admin Acetaminophen 1,000 mg 01/05/18 21:00 01/07/18 21:21 Tylenol PO 1,000 mg TID REDD Administration Amlodipine/Benazepril HCl 1 cap 01/06/18 09:00 01/07/18 08:24 Lotrel PO Not Given DAILY REDD Aspirin 81 mg 01/05/18 19:00 01/07/18 07:43 Ecotrin PO 81 mg .DAILY @ NOON REDD Administration Bisacodyl 10 mg 01/06/18 23:08 Dulcolax RECTALLY DAILY PRN Constipation Enoxaparin Sodium 40 mg 01/06/18 09:00 01/07/18 08:24 Lovenox SQ Not Given DAILY [facility] Fluconazole 200 mg 01/05/18 19:15 01/07/18 08:24 Diflucan 100 Mg Tablet PO Not Given DAILY REDD Hydromorphone HCl 2 mg 01/06/18 21:47 01/07/18 16:27 Dilaudid PO 2 mg Q4H PRN Administration Pain Insulin Aspart 3 - 12 unit 01/05/18 21:21 01/06/18 16:00 Novolog SQ 4 unit SS PRN Administration Hyperglycemia Protocol Insulin Aspart 30 unit 01/07/18 06:30 01/07/18 05:52 Novolog SQ 30 unit ACB REDD Administration Insulin Aspart 30 unit 01/06/18 11:30 01/07/18 12:45 Novolog SQ 30 unit ACL REDD Administration Insulin Aspart 30 unit 01/06/18 17:00 01/07/18 18:36 Novolog SQ 30 unit ACS REDD Administration Metformin HCl 500 mg 01/06/18 12:00 01/07/18 18:38 Glucophage PO 500 mg BIDWM REDD Administration Nystatin 1 applic 01/06/18 15:00 01/07/18 21:21 Mycostatin TP 1 applic TID REDD Administration Polyethylene Glycol 17 gm 01/07/18 09:00 01/07/18 08:24 Miralax PO Not Given DAILY REDD Simvastatin 40 mg 01/05/18 21:00 01/07/18 21:21 Zocor PO 40 mg HS REDD Administration Discontinued Medications Generic Name Dose Route Start Last Admin Trade Name Richie PRN Reason Stop Dose Admin Sodium Chloride 1,000 mls @ 999.9 mls/hr 01/05/18 14:23 01/05/18 15:21 Normal Saline IV 01/05/18 15:22 Infused .Q1H ONE Infusion Potassium Chloride/Sodium Chloride 1,000 mls @ 50 mls/hr 01/05/18 20:30 01/07 22:17 Ns With Kcl 20 Meq Premix IV Not Given .Q20H REDD Insulin Glargine 100 unit 01/05/18 20:00 01/07/18 21:20 Lantus SQ 100 unit PM REDD Administration Insulin Human Regular 5 unit 01/05/18 14:24 01/05/18 14:32 Novolin R IVP 01/05/18 14:25 5 unit O ONE Administration Insulin Human Regular 25 unit 01/05/18 16:15 01/05/18 16:25 Novolin R SQ 25 unit O REDD Administration Insulin Human Regular 5 unit 01/05/18 17:26 01/05/18 18:07 Novolin R SQ Not Given O REDD Insulin Human Regular 5 unit 01/05/18 18:05 01/05/18 18:00 Novolin R IVP 01/05/18 18:06 5 unit O ONE Administration Nystatin 1 applic 01/05/18 16:22 01/05/18 17:30 Mycostatin TP 01/05/18 16:23 1 applic O ONE Administration Nystatin 1 applic 01/05/18 21:00 01/06/18 09:24 Mycostatin TP Not Given TID REDD Pneumococcal Polyvalent Vaccine 0.5 ml 01/06/18 17:00 01/06/18 18:33 Pneumovax 23 IM 01/06/18 17:01 0.5 ml .ONCE ONE Administration Potassium Chloride 40 meq 01/06/18 07:54 01/06/18 09:21 K-Dur 20 Meq Tablet PO 01/06/18 07:55 40 meq O ONE Administration - Constitutional no acute distress, mild distress - Routine HEENT Exam Head: Present: normocephalic, atraumatic Eye: Present: EOMI ENT: Present: mucous membranes moist - Routine Neck Exam Absent: thyromegaly - Routine Respiratory Exam Absent: dyspnea - Routine Cardiovascular Exam Present: RRR - Routine Abdominal Exam Present: soft, normoactive bowel sounds - Routine Extremities Exam Absent: edema - Routine Skin Exam Present: dry, warm - Routine Neurological Exam Present: alert, oriented X3, moving all extremities - Routine Psychiatric Exam Present: normal affect, normal thought process, good insight, good judgment - Additional findings Additional findings: Glucometer apparently not docked (no readings under labs), but per nursing notes past 24 hours showed 133, 182, 119, and 67. Assessment and Plan (1) Type 2 diabetes mellitus with hyperglycemia Current visit: Yes Status: Chronic Again has FBS<70. Will taper Lantus to 94 units at bedtime. Progress Note: Quality - Stroke Onset of Symptoms Time: 08:00
[2018-01-08] MEDS: HYDROMORPHONE 2 MG TABLET PO PRN ×2 (09:10→14:30)
[2018-01-08] MEDS: METFORMIN 500 MG TABLET PO SCH (09:10)
[2018-01-08] MEDS: ACETAMINOPHEN 500 MG TABLET PO SCH ×2 (09:10→14:29)
[2018-01-08] MEDS: INSULIN ASPART 100unit/ml INJECTION SQ SCH ×2 (09:11→12:25)
[2018-01-08] MEDS: FLUCONAZOLE 100 MG TABLET PO SCH (09:12)
[2018-01-08] MEDS: ENOXAPARIN 40 MG/0.4 ML INJECTION SQ SCH (09:12)
[2018-01-08] MEDS: AMLODIPINE/BENAZEPRIL 5mg/10mg CAPSULE PO SCH (09:12)
[2018-01-08] MEDS: POLYETHYL GLYCOL 3350 17gm PACKET PO SCH (09:13)
--- NOTE | 2018-01-08 10:13 | Progress Note ---
- Date 01/08/18 Subjective: Other than feeling weak, Rehana is doing quite well. Her reported that she went on a long walk with the walker this morning. She felt exhausted by the time it was over but denied dizziness or difficulty breathing. She denies chest pain. She denies abd cramping, n/v/d and has been eating well. Objective Vital signs: Temperature 96.3 F L 01/08/18 07:22 Pulse Rate 82 01/08/18 07:22 Respiratory Rate 17 01/08/18 07:22 Blood Pressure 137/69 01/08/18 07:22 Pulse Oximetry 99 01/08/18 07:22 Height/Weight/BMI: Height 1.6 m Weight 98.1 kg Body Mass Index 37.6 - Constitutional Present: no acute distress, well nourished, well developed, obese - Routine HEENT Exam Head: Present: normocephalic Eye: Absent: conjunctival icterus, scleral injection ENT: Present: mucous membranes moist - Routine Respiratory Exam Present: CTA bilaterally - Routine Cardiovascular Exam Present: RRR, S1, S2 - Routine Abdominal Exam Present: soft, normoactive bowel sounds, non distended, non tender - Routine Extremities Exam Present: edema (trace RLE, 1+ LLE) - Routine Musculoskeletal Exam Musculoskeletal: Present: surgical scar (B/L TKA) - Routine Skin Exam Present: intact, dry, warm - Routine Neurological Exam Present: alert, oriented X3, CN II-XII intact, normal speech. Absent: facial asymmetry - Routine Psychiatric Exam Present: normal affect, normal thought process, cooperative Results - Labs CBC & Chem 7: 01/07/18 05:28 01/07/18 05:28 Assessment and Plan Assessment and Plan: Assessment Uncontrolled DM, Type 2 on insulin (A1C >15% on admission) Mild ketoacidosis-resolved Hyperosmolarity-resolved Yeast infection extending from gluteal crease to vulva Diabetic retinopathy Morbid obesity - BMI 37.6 CHF-LVH/diastolic dysfunction, EF 60% on echo 02/13 HLD HTN Osteoarthritis of b/l knees H/o TIA Hypokalemia, not POA-resolved Plan Diabetic mgt per Dr. Bhat - had low fasting BGM this am of 67 and Lantus dose has been reduced to 94 U. IRU screen pending. CM investigating other options for skilled placement. Continue wound care - 3 M advanced protectant and Mepilex and buttock offloading D/W attending. DVT Prophylaxis: Lovenox Resuscitation Status: Full Code - Physician Narrative Narrative: Date: 01/08/18 Time: 1010 Seen and examined patient on same day as the above note. Agree with history, physical, assessment and plan. Comprehensive physical findings correlate to the above note. Exam: Gen.:no apparent distress, alert and oriented HEENT: normocephalic atraumatic, oral mucosa moderately dry neck: no lymphadenopathy no jugular venous distention respiratory: there to auscultation bilaterally with good excursion cardiovascular: cardiovascular S1 S2 no adventitious murmurs rubs or gallops abdomen/GI: soft nondistended with bowel sounds extremities: good peripheral perfusion with no edema skin/integument: no significant injuries or edema neuro: alert and oriented. No focal deficits appreciable psych: conversant and pleasant and appropriately socially engaged Labs: reviewed showing glucose within range and even low at 67 this morning. Assessment and plan: insulin-dependent diabetes and hyperglycemia managed by Dr. Bhat. Patient does appear to be mildly to moderately demented and is debilitated secondary to poor activity level when left to her own devices. Appears she could benefit from rehab and rigorous motivation from physical therapy. She will transfer over to IRU today Documented on TrewCap speech to text. Efforts to correct speech recognition errors performed, but variation may exist Hospital Course Summary Disclaimer: The visit summary below is not to be considered part of the above Progress Note. Hospital Course: 01/05/18 Admit for correction of BS's and close monitoring. Stay expected to exceed two overnights for correction of BS's and managing her comorbidities listed above. 30U insulin given in ER. 1300cc's NS given in ER. BS down to 299 on admission to floor, down from 604 in ER. Will check BMP stat to evaluate current potassium level given the administration of insulin in ER and to determine further fluids. Continue her glargine 100U q hs. Further insulin and IVF orders per Dr. Calloway. Diflucan 200 qd for yeast infection. Will also use topical Nystatin under barrier cream. Check EKG -irregular rhythm on exam. R/o a-fib. Check A1C, betahydroxybutyrate, Mg. Continue home meds for HTN/HLD Lovenox for VTE ppx. Full Code Hien Westfall CLOUD SERVICES ARCHITECT - PCP 01/06/18 Blood sugars much improved today. Fasting blood sugar is 100. She continues on sliding scale insulin at the present time and was given her basal insulin [address] Bhat has seen patient this morning -awaiting his recommendations. Diabetes and dietary education have been ordered. Wound team will evaluate sore on buttocks. Nursing reports vulvar/groin symptoms worsened with the nystatin cream. Will switch to powder. Continues on Diflucan. Potassium 3.4. Replacement given. CO2 and osmolality have normalized. EKG performed last evening for irregular rhythm revealed normal sinus rhythm with frequent PACs. Vital signs are stable. Consider decreasing or discontinuing IV fluids later today if patient is taking by mouth well. PT/OT consults. 01/07/18 ~Patient is currently on NovoLog 30 mg before each meal and [address] Bhat started metformin 500 mg twice a day and recommends titrating weekly up to 1000 mg twice a day. If blood sugars are not controlled , consider switching to the U-500 insulin twice a day as opposed to large dose of Lantus at bedtime. Blood sugars reviewed. No changes at this time. We'll continue to monitor. ~Wound clinic evaluated patient's buttocks and has recommended 3 M advanced protectant and Mepilex. She has no open sore at this time. Recommend she reposition frequently to keep her weight off of this area. ~Family would like patient to go to IRU, if possible, for further strengthening. does not feel that he can take care of her at home. IRU screen ordered. If she does not qualify for IRU, will proceed with assisted unit placement. Potentially discharge tomorrow. ~Labs and vitals are stable. Dr. Bhat's notes reviewed. DC IV fluids. 01/08/[address] Bhat - had low fasting BGM this am of 67 and Lantus dose has been reduced to 94 U. IRU screen pending. CM investigating other options for skilled placement. Continue wound care - 3 M advanced protectant and Mepilex and buttock offloading
[2018-01-08 12:40] VITALS: RESP 18
--- NOTE | 2018-01-08 17:02 | Discharge Summary ---
Discharge Information Date of admission: 01/05/18 17:11 Anticipated date of discharge: 01/08/18 Attending Physician: Matias Braden MD Primary care physician: Hien Westfall APRN Consults: Dietary Consult [CONS] Routine Reason For Exam: uncontrolled diabetes Inpatient Diabetic Consult [CONS] Routine Diabetic Diagnosis: E11.65 Uncontrolled T2 DM Physician Consult [CONS] Routine Consulting Provider: Surjit Bhat Reason For Exam: uncontrolled diabetes [facility] Consult [CONS] Routine - Discharge Diagnosis (1) DM (diabetes mellitus) type 2, uncontrolled, with ketoacidosis Status: Acute Uncontrolled DM, Type 2 on insulin (A1C >15% on admission) Mild ketoacidosis-resolved Hyperosmolarity-resolved Yeast infection extending from gluteal crease to vulva Diabetic retinopathy Morbid obesity - BMI 37.6 CHF-LVH/diastolic dysfunction, EF 60% on echo 02/13 HLD HTN Osteoarthritis of b/l knees H/o TIA Hypokalemia, not POA-resolved - Laboratory Labs: 01/07/18 05:28 01/07/18 05:28 History of Present Illness HPI: Patient is an 82 yo diabetic female who lives at home with her . She was brought in to ED by EMS due to increasing weakness. Reportedly, she was so weak , she couldn't get herself off the toilet despite her 's assistance. Glucose by EMS was 585. Pt denies missing any insulin doses. She reports she checks her sugars 1-2 x a day at home. She currently denies any sxs other than weakness and some pain in her buttocks/shailesh area due to yeast rash. She sees Hien Westfall APRN for her primary care. Her most recent recorded A1C was >14 % on 06/11/17. In ER, her glucose was 604, CO2 low at 14, + ketones in urine. Objective Vital signs: Temperature 96.3 F L 01/08/18 07:22 Pulse Rate 82 01/08/18 07:22 Respiratory Rate 18 01/08/18 14:30 Blood Pressure 137/69 01/08/18 07:22 Pulse Oximetry 99 01/08/18 07:22 Height/Weight/BMI: Height 1.6 m Weight 98.1 kg Body Mass Index 37.6 Comments: see progress note dated 01/08/18 Hospital Course This is a general summary of the patient's hospital course. For more details refer to the complete medical record. Hospital course: 01/05/18: Admitted, inpatient status. After treatment with insulin 30 U and 1300 mL NS given in ED, BGM improved from 604 to 299. Home lantus/mealtime doses were continued. Diflucan and topical nystatin were initiated for yeast infection. A1c was found to be >15%, betahydroxybutyrate was 4.2. EKG revealed normal sinus rhythm with frequent PACs. 01/06/18 Blood sugars much improved. Fasting blood sugar is 100. Dr. Bhat started Metformin in addition to long and short acting insulin - note that her home Humalog was changed to NovoLOG. Diabetes and dietary education have been ordered. Potassium 3.4. Replacement given. CO2 and osmolality have normalized. TSH was normal. 01/07/18 Current meds: NovoLog 30 mg before each meal and [address] Bhat started metformin 500 mg twice a day and recommends titrating weekly up to 1000 mg twice a day. If blood sugars are not controlled, consider switching to the U-500 insulin twice a day as opposed to large dose of Lantus at bedtime. [facility] dc'd. Wound clinic evaluated patient's buttocks and has recommended 3 M advanced protectant and Mepilex. She has no open sore at this time. Recommend she reposition frequently to keep her weight off of this area. 01/08/[address] Bhat - had low fasting BGM this am of 67 and Lantus dose has been reduced to 94 U. Accepted to IRU: will need Rx for metformin and NovoLog at discharge. Consult Dr. Bhat for ongoing DM management while on IRU. Complete the course of Diflucan and topical nystatin - hopefully will not need Rx. Additional comment placed in the progress note today regarding patient examination and plan. So please see this for billing purposes Time spent with patient: greater than 35 minutes Resuscitation Status: Full Code Discharge Plan - Discharge Disposition Discharge Date: 01/08/18 Disposition: 62 [place] [facility] [place] [place] *Condition: Stable for Transport Reason For Visit (Visit label in EMR): Hyperglycemia - Discharge Medications *Discharge Medications: Continue Simvastatin [Zocor] 40 mg PO HS Mapap Extra Strength 500 mg tablet 1,000 mg PO TID Lotrel (amlodipine 5 mg-benazepril 10 mg) capsule 1 cap PO DAILY #90 cap aspirin 81 mg tablet,delayed release 81 mg PO .DAILY @ NOON tab Changed Insulin Glargine,Hum.rec.anlog [Basaglar Kwikpen U-100] 94 unit SQ HS #1 bottle Discontinued Humalog KwikPen (insulin lispro) 100 unit/mL SQ PEN 32 unit SQ TID #30 ml - Discharge Packet/Instructions *Diet: Consistent carbohydrate *Activity: PT/OT evals. *Pain Management/Treatment: Tylenol PRN *Wound Care: Topical powder *Expected Signs/Symptoms: Weakness should improve with therapy *Notify Physician if: Fever, SOA, chest pain, n/v/d, stroke-like sytmpoms, high/ low blood sugars, or any new concerns *During Business Hours Contact: Your nurse on IRU *After Business Hours Contact: Your nurse on IRU *Pending Lab/Results: Follow up w/Provider - IRU/GEN Discharge/Transfer - Referrals/Follow Up *Referrals/Follow Up: Surjit Bhat MD [Physician] - Hien Westfall APRN [Primary Care Provider] - - Patient Handouts Patient Handouts: Diabetic Hyperglycemia (GEN) - Dismissal Complete Discharge Instructions are:: Complete Physician Narrative - Narrative Attestation Narrative: Date: 01/08/18 Time: 6680
[2018-01-08] MEDS ORDERED: INSULIN GLARGINE 100unit/ml INJECTION SQ SCH (21:00)
== END 2018-01-08 16:45 | DRG 638 ==
LOC: ED 14:01 → SUATTDRO 17:11 → EDHOLD 17:11 → MED 18:15
PROVIDERS: ADMIT Internal Medicine; ATTEND Family Medicine

== ENCOUNTER 2018-01-08 16:45 | Inpatient (IN) ==
[2018-01-08] MEDS ORDERED: INSULIN ASPART 100unit/ml INJECTION SQ PRN (17:09)
[2018-01-08] MEDS ORDERED: BISACODYL 10 MG SUPPOSITORY RECTALLY PRN (17:09)
[2018-01-08] MEDS: METFORMIN 500 MG TABLET PO SCH (18:17)
[2018-01-08 18:25] VITALS: BMI 38.6
[2018-01-08] MEDS: ACETAMINOPHEN 500 MG TABLET PO SCH (20:38)
[2018-01-08] MEDS: SIMVASTATIN 40 MG TABLET PO SCH (20:38)
[2018-01-08] MEDS: INSULIN GLARGINE 100unit/ml INJECTION SQ SCH (20:49)
[2018-01-09] MEDS: HYDROMORPHONE 2 MG TABLET PO PRN (01:04)
[2018-01-09] MEDS ORDERED: INSULIN ASPART 100unit/ml INJECTION SQ SCH ×3 (08:00→17:00)
[2018-01-09] MEDS: METFORMIN 500 MG TABLET PO SCH ×2 (08:42→17:20)
[2018-01-09] MEDS: AMLODIPINE/BENAZEPRIL 5mg/10mg CAPSULE PO SCH (08:42)
[2018-01-09] MEDS: ACETAMINOPHEN 500 MG TABLET PO SCH ×3 (08:43→20:41)
[2018-01-09] MEDS: ENOXAPARIN 40 MG/0.4 ML INJECTION SQ SCH (08:43)
[2018-01-09] MEDS: FLUCONAZOLE 100 MG TABLET PO SCH (08:43)
--- NOTE | 2018-01-09 08:43 | Consult Note ---
Consult Information - Data of Consult Consult date: 01/09/18 Requesting Physician: Patel Meng MD Primary Care Provider: Hien Westfall APRN - Consult Narrative Reason for consult: medical management, uncontrolled diabetes History of present illness: Rehana Blair is a very pleasant 82-year-old female patient of Hien Westfall APRN, who was [place] [facility] [place] evaluation of increasing generalized weakness and debility. She reports that prior to her admission, she had become so weak that she was requiring her husbands assistance for daily activities and eventually was unable to get up off the toilet, despite her husbands assistance. EMS was contacted and she was found to have a blood glucose of 585. She is a known insulin dependent diabetic. She was brought [place] [facility] [place]. Labs in ED revealed hyperglycemia (Glu 604) with CO2 14 and anion gap of 23. A1c >15%. Beta-hydroxybutyrate 4.2. She was admitted to the hospitalist service for mild ketoacidosis, hyperosmolarity and uncontrolled diabetes. Dr. Bhat, endocrinology, was consulted for management and expertise for her diabetes management. Blood sugars improved with IV fluids and close monitoring of blood sugars with insulin adjustments. She was started on Diflucan and topical nystatin for groin yeast infection. Dr. Bhat initiated metformin 500mg BID on 01/06/18 in addition to continuation of her home insulins. Her home Humalog was changed to NovoLog with 30 units before each meal and 100 units of Lantus at bedtime. Due to low fasting BGMs in AM, the Lantus dose was decreased to 94 units on 01/08/18. Plan to titrate metformin up weekly to 1000mg BID per Dr. Bhat. With correction of her hyperglycemia, she was noted to have mild hypokalemia which was corrected with supplementation. Wound clinic was consulted regarding skin break down to her buttock region and recommended 3M advanced protectant and Mepilex to the area while frequently repositioning to avoid excess weight to the area. She was accepted and transferred to IRU on 01/08/18 with the hospitalist service consulted for continued medical management. Past Medical History Medical History: Medical History (Last Updated 01/09/18 @ 10:49 by RONNI Yanez) Yeast dermatitis (Acute) Diabetic retinopathy associated with type 2 diabetes mellitus (Chronic) Body mass index (BMI) of greater than 35 to 39.9 with comorbidity (Chronic) Osteoarthritis of knees, bilateral (Chronic) Low back pain (Chronic) Decreased mobility (Chronic) Hypercholesterolemia (Chronic) Congestive heart failure (CHF) (Chronic) LVH with diastolic dysfunction, EF 60% - echocardiogram 01/2017. History of TIA (transient ischemic attack) (Chronic) Hypertension (Chronic) Type 2 diabetes mellitus (Chronic) insulin dependent. A1c >15% - 01/06/2018. Surgical History: Tonsillectomy. Right total knee replacement. Partial knee replacement on left. Hysterectomy. Lumpectomy right breast. Family History: Family History Father Heart attack Maternal Grandmother Diabetes Mother Diabetes Maternal Grandfather Rheumatoid arthritis Family History: As Above - Social History Smoking status: Never smoker Substance use type: does not use Alcohol intake frequency: does not drink Housing: house Household members: spouse (Reyes - 55 years) Current occupational status: retired Does patient use chewing tobacco?: No Current residence: Apartment/Private Home Social history: PCP - Hien Westfall APRN. Endo - Dr. Surjit Bhat. Review of Systems All systems PM: 10-point ROS was reviewed, no additional remarkable complaints except - Constitutional Constitutional: Present: weakness (generalized). Absent: chills, fatigue, fever (s), malaise - EENMT Eyes: Absent: change in vision, diplopia, photophobia Ears: Absent: ear pain Balance: Absent: falling to one side Nose: Absent: nosebleeds Mouth/Throat: Absent: sore throat, changes in swallowing, dry mouth - Cardiovascular Cardiovascular: Absent: chest pain, palpitations, syncope, dyspnea on exertion, orthopnea, heart murmur Vascular: Present: pedal edema. Absent: pallor of an extermity, unilateral swelling - Respiratory Respiratory: Absent: cough, dyspnea, hemoptysis, dyspnea on exertion, wheezing, pain on inspiration - Gastrointestinal Gastrointestinal: Absent: abdominal pain, diarrhea, melena, nausea, vomiting - Genitourinary Genitourinary: Absent: dysuria, flank pain, hematuria Menstruation: post hysterectomy - Musculoskeletal Musculoskeletal: Present: muscle weakness (generalized). Absent: back pain, deformity - Integumentary/Breasts Integumentary: Present: rash (yeast) - Neurological Neurological: Present: weakness (generalized). Absent: confusion, dizziness, focal weakness - Psychiatric Psychiatric: Absent: depression - Endocrine Endocrine: Absent: flushing, palpitations - Hematologic/Lymphatic Hematologic/Lymphatic: Absent: easy bruising - Allergic/Immunologic Allergic/Immunologic: Absent: seasonal rhinorrhea Medications Home Medications Medication Instructions Recorded Confirmed Type Lotrel (amlodipine 5 mg-benazepril 1 cap PO DAILY #90 cap 02/11/17 01/08/18 Rx 10 mg) capsule aspirin 81 mg tablet,delayed 81 mg PO .DAILY @ NOON tab 03/19/17 01/08/18 History release Mapap Extra Strength 500 mg tablet 1,000 mg PO TID 04/23/17 01/08/18 History Simvastatin [Zocor] 40 mg PO HS 01/05/18 01/08/18 History Insulin Glargine,Hum.rec.anlog 94 unit SQ HS #1 bottle 01/08/18 01/08/18 Rx [Basaglar Kwikpen U-100] Allergies Allergy/AdvReac Type Severity Reaction Status Date / Time cephalexin Allergy Intermediate RASH Verified 01/05/18 14:29 codeine Allergy Unknown Restlessnes Verified 01/05/18 14:29 s Exam Vital Signs: Temperature 97.6 F 01/08/18 22:55 Pulse Rate 86 01/08/18 22:55 Respiratory Rate 16 01/09/18 01:51 Blood Pressure 142/73 H 01/08/18 22:55 Pulse Oximetry 97 01/08/18 22:55 Height/Weight/BMI: Height 5 ft 3 in Weight 218 lb 0.595 oz Body Mass Index 38.6 Comments: Patient seen while eating breakfast in dining room. Pleasant disposition. - Constitutional Present: no acute distress, well nourished, well developed, morbidly obese, cooperative - Routine HEENT Exam Head: Present: normocephalic, atraumatic Eye: Present: PERRL. Absent: conjunctival icterus ENT: Present: mucous membranes moist, oropharynx clear - Routine Neck Exam Present: supple, full ROM, trachea midline - Routine Chest/Breast/Axilla Exam Chest wall: Absent: pacemaker - Routine Respiratory Exam Present: CTA bilaterally. Absent: respiratory distress, wheezes - Routine Cardiovascular Exam Present: RRR, S1, S2 - Routine Abdominal Exam Present: soft, normoactive bowel sounds, non distended, non tender Comments: Obese - Routine Extremities Exam Present: edema (trace), non tender, pulses intact - Routine Back/Spine/Pelvis Exam Back/Spine: Present: full ROM. Absent: vertebral tenderness - Routine Skin Exam Present: intact, dry, warm Comments: Afebrile. Yeast infection not visualized during exam. - Routine Neurological Exam Present: alert, oriented X3, moving all extremities, hearing grossly intact, normal speech - Routine Psychiatric Exam Present: normal affect, normal thought process, cooperative Results - Labs CBC & Chem 7: 01/09/18 04:53 01/09/18 04:53 Assessment and Plan Assessment and Plan: Assessment: Generalized debility and weakness. Recent DKA with hyperosmolality, resolved. Uncontrolled DM, Type 2 on insulin (A1C >15%). Yeast infection extending from gluteal crease to vulva Diabetic retinopathy. Morbid obesity - BMI 37.6. CHF-LVH/diastolic dysfunction, EF 60% on echo 01/2017. Hyperlipidemia. Hypertension. Osteoarthritis, knees. History of TIA. Plan - 01/09/18 Agree with admission to IRU for continued strengthening and improvement in functional abilities. Hospitalist service consulted for continued medical management. Dr. Bhat consulted for continued diabetic management. Monitor blood sugars closely. Patient was started on metformin 500mg BID on 01/06/[address] Bhat with plan to titrate up weekly to 1000mg BID. Orders per Dr. Bhat. Continue NovoLog 30 units TID with meals and lantus 94 units QHS. Insulin adjustments per Dr. Bhat. Continue Metformin 500mg BID. Plan to titrate metformin up weekly until ideal dose of 1000mg BID is achieved - orders per Dr. Bhat. Encourage continued education with outreach educator for improved compliance at home. Will continue other home medications. Monitor blood pressures closely. Continue wound care for skin breakdown to buttock. Previously recommended 3M advanced protectant and Mepilex to the area while frequently repositioning to avoid excess weight to the area. Continue Diflucan and nystatin for yeast. Therapies and pain control per Dr. Meng. Will recheck labs periodically throughout admission. Upon discharge, patient's care will be returned to her PCP, Hien Westfall APRN. Patient is a full code. DVT Prophylaxis: Lovenox Resuscitation Status: Full Code - Time spent with patient Time with patient PN: 70 minutes - Physician Narrative Physician: other (Dr. Braden) Narrative: Date: 01/09/18 Time: 0832 Seen and examined patient on same day as the above consultation by nurse practitioner Moriah Leal. Agree with history, physical, assessment and plan. Comprehensive physical findings correlate to the above note. HPI: patient has a recent recovery from DKA but moderate fluctuation of blood sugar since PMH/SH/FH: as per above ROS: no further information from 10 system review Exam: Gen.:no apparent distress, obese morbidly HEENT: normocephalic atraumatic, oral mucosa moderately dry neck: no lymphadenopathy no jugular venous distention respiratory: there to auscultation bilaterally with good excursion cardiovascular: cardiovascular S1 S2 no adventitious murmurs rubs or gallops abdomen/GI: soft nondistended with bowel sounds extremities: good peripheral perfusion with no edema skin/integument: no significant injuries or edema neuro: certain oriented. No focal deficits appreciable psych: conversant and within normal limits Labs: reviewed imaging: no acute processes Assessment and plan: diabetes type II requiring insulin. Continue current regimen. Morbid obesity. Patient continued to need calorie restriction candidiasis: secondary to uncontrolled diabetes. Better control of diabetes and continue use diflucan and nystatin Documented on [employer] speech to text. Efforts to correct speech recognition errors performed, but variation may exist Hospital Course Summary Disclaimer: The visit summary below is not to be considered part of the above Progress Note. Hospital Course: Plan - 01/09/18 Agree with admission to IRU for continued strengthening and improvement in functional abilities. Hospitalist service consulted for continued medical management. Dr. Bhat consulted for continued diabetic management. Monitor blood sugars closely. Patient was started on metformin 500mg BID on 01/06/[address] Bhat with plan to titrate up weekly to 1000mg BID. Orders per Dr. Bhat. Continue NovoLog 30 units TID with meals and lantus 94 units QHS. Insulin adjustments per Dr. Bhat. Continue Metformin 500mg BID. Plan to titrate metformin up weekly until ideal dose of 1000mg BID is achieved - orders per Dr. Bhat. Encourage continued education with outreach educator for improved compliance at home. Will continue other home medications. Monitor blood pressures closely. Continue wound care for skin breakdown to buttock. Previously recommended 3M advanced protectant and Mepilex to the area while frequently repositioning to avoid excess weight to the area. Continue Diflucan and nystatin for yeast. Therapies and pain control per Dr. Meng. Will recheck labs periodically throughout admission. Upon discharge, patient's care will be returned to her PCP, Hien Westfall APRN. Patient is a full code.
[2018-01-09] MEDS: POLYETHYL GLYCOL 3350 17gm PACKET PO SCH (08:44)
--- NOTE | 2018-01-09 10:59 | IRU 24Hr Post Admit Eval ---
24 Hr Post Admission Physical - Relevant Changes Relevant Changes: No Reviewed: I have reviewed the patient's information and concur with the finding and results of the pre-admission screen. Certification: I certify the patient for rehabilitation. - Patient Condition (1) Debilitated Status: Acute Code(s): R53.81 - Other malaise Classification: Present on IRF Admission, IRF Tx That Should Address Diagnosis, Diagnosis Requiring Medical Follow Up (2) Body mass index (BMI) of greater than 35 to 39.9 with comorbidity Status: Chronic Classification: Present on IRF Admission, IRF Tx That Should Address Diagnosis (3) Diastolic CHF, chronic Status: Chronic Code(s): I50.32 - Chronic diastolic (congestive) heart failure Classification: Diagnosis Requiring Medical Follow Up (4) Yeast dermatitis Status: Acute Code(s): B37.2 - Candidiasis of skin and nail Classification: Present on IRF Admission, IRF Tx That Should Address Diagnosis, Diagnosis Requiring Medical Follow Up (5) Hypertension Status: Chronic Qualifiers: Hypertension type: essential hypertension Qualified Code(s): I10 - Essential (primary) hypertension Code(s): I10 - Essential (primary) hypertension Classification: Present on IRF Admission, IRF Tx That Should Address Diagnosis, Diagnosis Requiring Medical Follow Up (6) Osteoarthritis of knees, bilateral Status: Chronic Qualifiers: Osteoarthritis type: primary Qualified Code(s): M17.0 - Bilateral primary osteoarthritis of knee Code(s): M17.0 - Bilateral primary osteoarthritis of knee Classification: Present on IRF Admission, Diagnosis Requiring Medical Follow Up (7) Type 2 diabetes mellitus with hyperglycemia Status: Chronic Qualifiers: 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 at home or school, Depend. w/ IADL - Current Functional Status Current Level of Function: She currently requires supervision for grooming, minimum assistance for bathing and upper body dressing, maximum assistance for lower body dressing and total assistance for toileting. She requires minimum assistance for transfers including toilet transfers and wheelchair activity. She requires maximal assistance for walking with a rolling walker 61 feet. She seems to have some confusion and left leaning tendency. Short-term memory appears to be reduced. Failed Alternative Therapy: Arrived from Acute Care Patient Requirements: The patient requires oversight by rehabilitation physician to manage their rehabilitation treatment plan and multidisciplinary approach to care that can only be provided in an IRF and requires a multidisciplinary approach to care, provided by professional PTs, OTs, STs, dieticians, RTs, rehabilitation nurses and is not available in lesser levels of care. Limitations Req: Mobility Impairment, ADL Impairment, Cognitive Impairment Physical Therapy Minutes: 90 Occupational Therapy Minutes: 90 Therapy: The patient is to receive therapy at least 5 days a week. - Complications/Comorbidities Impact on Functional Outcomes: Patient's debility, uncontrolled diabetes and memory loss will negatively impact her functional outcome. Barriers to Discharge: Weakness, Balance, Endurance, Comprehension, Medical Limitation - Plan to Avoid Complications Plan to Avoid Complications: The patient cannot receive this care in a lesser intensive setting such as Halfway or Outpatient Therapy due to the patient requiring the following : Patient requires close 24 hour rehabilitation nursing monitoring of her blood sugars, blood pressures and cardiac status. She is a high fall risk requiring close monitoring. She requires a multidisciplinary approach with physical therapy and occupational therapy with medical supervision in view of her recent episode of diabetic ketoacidosis. She requires nursing monitoring and treatment of her severe vulvar/perineal yeast involvement with dermatitis.
--- NOTE | 2018-01-09 11:25 | Consultation ---
DATE OF CONSULT 01/09/2018 REASON FOR CONSULTATION Uncontrolled type 2 diabetes mellitus. HISTORY OF PRESENT ILLNESS Mrs. Blair is an 82-year-old female who is transferred to the IRU for strengthening before dismissal. She had previously been admitted in mild ketoacidosis and very poorly controlled type 2 diabetes mellitus. When she initially was admitted as an inpatient her hemoglobin A1c was greater than 15. However, she was fairly easy to control and had tightly controlled blood sugars without hypoglycemia on the day of her transfer to IRU. On the unit, her glucose levels by glucometer have been 74, 107 and 71 fasting this morning. She is taking 30 units of NovoLog t.i.d. with meals, 94 units of Lantus at bedtime and 500 mg of metformin b.i.d. ALLERGIES CODEINE and CEPHALEXIN. PAST MEDICAL HISTORY 1. Type 2 diabetes mellitus. 2. Hypertension. 3. Status post hysterectomy. FAMILY HISTORY Remarkable for type 2 diabetes mellitus and myocardial infarction. SOCIAL HISTORY The patient does not use tobacco nor drink alcohol. REVIEW OF SYSTEMS Remarkable for perineal rash which is quite a discomfort. She has generalized weakness. She is otherwise without complaints. PHYSICAL EXAMINATION VITAL SIGNS: Afebrile with stable vital signs. HEENT: Unremarkable. NECK: Without thyromegaly. LUNGS: Clear. HEART: Regular rate and rhythm. ABDOMEN: Normal bowel sounds, nontender. EXTREMITIES: With 1+ pitting edema. LYMPHATICS: No enlarged nodes. NEUROLOGIC: Generalized weakness. Graded filament sensation in feet was absent except beneath the fifth left metatarsal head. ASSESSMENT 1. Type 2 diabetes mellitus, previously uncontrolled but doing much better now. 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 She can likely stay on the same medication regimen. 2. Diabetic peripheral neuropathy, severe. Feet should be checked for lesions daily. 3. Hypertension, controlled. 4. Long-term current insulin use. RECOMMENDATIONS Continue current insulin and metformin dosing. Follow glucometer readings fasting and 2 hours p.c. and call for levels below 60 or over 250. Thank you very much for asking my assistance in continuing to care for this nice lady. I will follow her with you while she remains in the hospital. KAREN
[2018-01-09] MEDS: ASPIRIN *EC* 81 MG TABLET PO SCH (14:02)
--- NOTE | 2018-01-09 15:21 | IRU History & Physical Report ---
HPI IRU Date: Date: 01/09/18 Time: 151 Chief complaint: I am weak HPI: Ms. Blair is a very pleasant 82-year-old female whom I interviewed in her room on inpatient rehabilitation. Referring physician is Gayatri Calloway M.D. Primary care provider is Hien Westfall APRN. The patient lives with her between [facility]. 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 The patient has had progressive weakness over the last several days if not longer. On 01/05/2018 she was on the toilet and simply could not get up. Her could not assist her. EMS was called. Initial blood sugar was around 580. She was brought to the emergency department and was noted to have diabetic ketoacidosis based on a CO2 level (bicarbonate) of around 14. Beta hydroxybutyrate was also elevated. She was given IV fluids and insulin and her blood sugars came down. The patient states that she has had progressive weakness over the past week or 2. However she is not very active even on a good day she states. She only ambulates around the house a few feet. She states she has no desire to get out of the house. She reports that she has not been out of the house since last May 2017. At that time she saw her primary care provider, Hien Westfall APRN. Her A1c was reported to be around 14% at that time. She states that she has felt weak and shaky recently. She normally walks with a rolling walker at home. She states she is able to do her own clothing/dressing and bathing. They get Meals on Wheels but any other cooking is done by her . She denies any recent fever, chills, night sweats, weight change, nausea or vomiting. She denies any recent chest pain or shortness of breath. The patient states that she has had diabetes since 1987. She last saw her provider about 6 months ago. Her states that they have had difficulty keeping her blood sugars down. She reportedly takes Humalog 30 units with each meal plus Lantus 90-100 units every evening at bedtime. She states that she is on no oral medications for her diabetes. She does not have a problem with low blood sugars. She reports to me that she checks her blood sugars twice weekly. On a previous note, she reported that she checked her sugars several times daily. Evaluation in the acute care hospital was reviewed. She did not have evidence of urinary tract infection nor any other infection. However she has a severe vulvar/buttock yeast dermatitis. There is a raised lesion on her left buttock over the initial tuberosity which measured perhaps 1 cm in diameter (I did personally inspect this with the nurse present). It is actually not an open wound at this time but simply a raised crusted lesion. However clearly is related to pressure. Patient has 2 steps to get into her home. She does use a rolling walker as her assistive device. She reports discomfort in her knees and cares a diagnosis of osteoarthritis of her knees. In addition she has history of hypertension, diastolic heart failure based on echocardiogram January 2017 demonstrated a normal ejection fraction but presence of LVH and diastolic dysfunction. Prior level of functioning is described above. She was modified independent for eating, grooming, bathing, upper body dressing, toileting, transfers and walking. She was able to walk with a rolling walker 50 feet. She required minimum assistance for lower body dressing. Current level of functioning is as follows: She requires supervision for grooming, minimum assistance for bathing and upper body dressing as well as transfers and toilet transfers. Requires minimum assistance with wheelchair. She requires maximum assistance for lower body dressing and walking with a rolling walker 61 feet. She is unable and unsafe to do stairs at the present time. She does tend to lean toward her left and does have mild confusion noted. Her short-term memory is reduced. The following medical conditions are noted and require active monitoring and/or management: 1. Diabetes mellitus, type II, not controlled with hemoglobin A1c 15%. She is at risk for further hyperglycemia, recurrence of her diabetic ketoacidosis or hypoglycemia. 2. Severe vulvar and buttock candidiasis with dermatitis. Has a pressure lesion on the left initial tuberosity. 3. Obesity 4. Reduced cognition/poor short-term memory 5. Benign essential hypertension 6. Chronic diastolic heart failure The following therapies will be needed: 1. Physical therapy: for transfers and ambulation and stairs. 2. Occupational therapy: for ADL's and transfers. 3. Medical management: for the above conditions. 4. 24 hour Rehabilitation Nursing to monitor and address the following: Close monitoring of blood sugars, blood pressures, and reduce fall risk. [facility] Patient Stated Medical History Peripheral Neuropathy Yes Transient Ischemic Attacks ( Yes TIA) Other HEENT Yes: LASAR FOR BROKEN VESSEL Congestive Heart Failure Yes Hypertension Yes Pneumonia Yes Diabetes Mellitus Type 2 Yes: over 10 years Constipation No Gastroesophageal Reflux Yes: FROM SOME FOODS Disease Hx Incontinence Yes Hx Urinary Tract Infection Yes Osteoarthritis Yes: KNEES Other Infectious Yes: STAPH TO KNEE INCISION Post Menopausal Yes Clinic Medical History (Last Updated 01/09/18 @ 10:49 by RONNI Yanez) Yeast dermatitis (Acute Medical) Diabetic retinopathy associated with type 2 diabetes mellitus (Chronic Medical) Body mass index (BMI) of greater than 35 to 39.9 with comorbidity (Chronic Medical) Osteoarthritis of knees, bilateral (Chronic Medical) Low back pain (Chronic Medical) Decreased mobility (Chronic Medical) Hypercholesterolemia (Chronic Medical) Congestive heart failure (CHF) (Chronic Medical) LVH with diastolic dysfunction, EF 60% - echocardiogram 01/2017. History of TIA (transient ischemic attack) (Chronic Medical) Hypertension (Chronic Medical) Type 2 diabetes mellitus (Chronic Medical) insulin dependent. A1c >15% - 01/06/2018. Medical History Updates: DM. TIA. CVA. HTN Surgical History: Tonsillectomy. Right total knee replacement. Partial knee replacement on left. Hysterectomy. Lumpectomy right breast. Bilat cataracts Family History: Family History (Last Reviewed 06/11/17 @ 13:05 by Estephania Donahue Melissa) Father Heart attack Maternal Grandmother Diabetes Mother Diabetes Maternal Grandfather Rheumatoid arthritis - Social History Smoking status: Never smoker Substance use type: does not use Alcohol intake: never Alcohol intake frequency: does not drink Housing: house Household members: spouse (Reyes - 55 years) Current occupational status: retired Does patient use chewing tobacco?: No Current residence: Apartment/Private Home Social history: Ms. Blair lives with her in her own home. She is not terribly active. 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 She says that she does not want to be around people. 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 Review of Systems - Constitutional Constitutional: Present: fatigue, lethargy, weakness. Absent: anorexia, chills , fever(s), headache(s), malaise, night sweats, weight gain, weight loss - EENMT Eyes: Absent: blurry vision, change in vision, diplopia Ears: Absent: ear pain Balance: Absent: falling to one side Nose: Absent: nosebleeds Mouth/Throat: Absent: sore throat, changes in swallowing, dry mouth - Cardiovascular Cardiovascular: Absent: chest pain, palpitations, syncope, dyspnea on exertion, orthopnea, edema, cyanosis, heart murmur Rhythm: Present: regular rhythm Vascular: Present: pedal edema. Absent: pallor of an extermity, unilateral swelling - Respiratory Respiratory: Absent: cough, dyspnea, hemoptysis, dyspnea on exertion, wheezing, pain on inspiration, chest congestion, excessive phlegm production - Gastrointestinal Gastrointestinal: Present: constipation. Absent: abdominal pain, change in bowel habits, diarrhea, dyspepsia, dysphagia, early satiety, hematochezia, melena, nausea, vomiting - Genitourinary Menstruation: post hysterectomy - Musculoskeletal Musculoskeletal: Present: arthralgias (knee pain). Absent: abnormal gait, back pain, joint swelling, limited range of motion, muscle weakness - Integumentary/Breasts Integumentary: Present: pruritus (with urination). Absent: alopecia, erythema, lesions, rash, jaundice - Neurological Neurological: Present: memory loss, weakness. Absent: abnormal gait, abnormal movements, abnormal speech, confusion, convulsions, dizziness, focal weakness, frequent falls, headache(s), loss of vision, numbness, paresthesias, tremor(s) - Psychiatric Psychiatric: Absent: abnormal sleep pattern, anxiety, depression - Endocrine Endocrine: Absent: cold intolerance, flushing, heat intolerance, palpitations - Hematologic/Lymphatic Hematologic/Lymphatic: Absent: easy bleeding, easy bruising, lymphadenopathy - Allergic/Immunologic Allergic/Immunologic: Absent: urticaria Medications Home Medications Medication Instructions Recorded Confirmed Type Lotrel (amlodipine 5 mg-benazepril 1 cap PO DAILY #90 cap 02/11/17 01/08/18 Rx 10 mg) capsule aspirin 81 mg tablet,delayed 81 mg PO .DAILY @ NOON tab 03/19/17 01/08/18 History release Mapap Extra Strength 500 mg tablet 1,000 mg PO TID 04/23/17 01/08/18 History Simvastatin [Zocor] 40 mg PO HS 01/05/18 01/08/18 History Insulin Glargine,Hum.rec.anlog 94 unit SQ HS #1 bottle 01/08/18 01/08/18 Rx [Basaglar Kwikpen U-100] Allergies Allergy/AdvReac Type Severity Reaction Status Date / Time cephalexin Allergy Intermediate RASH Verified 01/05/18 14:29 codeine Allergy Unknown Restlessnes Verified 01/05/18 14:29 s Results IRU - Labs Labs: I have reviewed extensive results from her acute care stay. Exam Vital Signs: Temperature 98.3 F 01/09/18 08:00 Pulse Rate 100 01/09/18 08:00 Respiratory Rate 20 01/09/18 08:00 Blood Pressure 132/79 01/09/18 08:00 Pulse Oximetry 96 01/09/18 08:00 Height/Weight/BMI: Height 1.6 m Weight 98.9 kg Body Mass Index 38.6 - Constitutional Present: no acute distress, well nourished, well developed, obese, cooperative Comments: At times her stories are somewhat inconsistent, particularly with regard to checking her blood sugars. She does have to refer to her or at least he corrects her from time to time, indicating the probability of poor memory. - Routine HEENT Exam Head: Present: normocephalic, atraumatic. Absent: cushingoid faces, abrasion, laceration, hematoma Eye: Present: EOMI, PERRL. Absent: conjunctival icterus, scleral injection, periorbital swelling, nystagmus ENT: Present: mucous membranes dry, oropharynx clear. Absent: dentition normal (has numerous capped teeth.) - Routine Neck Exam Present: supple, full ROM, trachea midline. Absent: lymphadenopathy, thyromegaly, tenderness, swelling - Routine Chest/Breast/Axilla Exam Chest wall: Absent: tenderness, mass Axillae: Absent: lymphadenopathy, mass - Routine Respiratory Exam Present: decreased breath sounds, CTA bilaterally. Absent: accessory muscle use , prolonged expiratory phase, rales, respiratory distress, rhonchi, stridor, wheezes, crackles, distant breath sounds - Routine Cardiovascular Exam Present: RRR, S1, S2, no murmur. Absent: gallop, S3, S4, click, irregular rhythm - Routine Abdominal Exam Present: soft, normoactive bowel sounds, non distended, non tender. Absent: rebound, guarding, firm, rigid, organomegaly, mass, hernia, wound Comments: obese - Routine Extremities Exam Present: no edema, non tender, pulses intact, normal capillary refill. Absent: cyanosis, clubbing Comments: Has thickened, uncut toenails bilaterally. However no open lesions are noted on the feet or ankles. Pulses are present. - Routine Back/Spine/Pelvis Exam Back/Spine: Absent: scoliosis, kyphosis - Routine Skin Exam Present: dry, warm. Absent: intact (patient has severely reddened vulvar/ buttock candidiasis with dermatitis.), cyanosis, erythema, pallor, mottling, petechiae, urticaria, lesions, jaundice Comments: There is a raised scabbed area on the left issue tuberosity. - Routine Neurological Exam Present: alert, oriented X3, CN II-XII intact, moving all extremities, normal speech Would question accuracy of her memory. - Routine Psychiatric Exam Present: normal affect, normal thought process, cooperative, good insight, good judgment. Absent: depressed, anxious Sepsis Assessment - Evaluation Severe Sepsis: none seen IRU A/P (1) Debilitated Current visit: Yes Status: Acute Patient likely has acute on chronic debilitation. Current symptoms triggering the current admission to acute care were those of severe weakness where she could not get up off the toilet. She is quite debilitated at home. She does have potential for improvement with intensive PT and OT. (2) Body mass index (BMI) of greater than 35 to 39.9 with comorbidity Current visit: No Status: Chronic (3) Diastolic CHF, chronic Current visit: Yes Status: Chronic Her heart failure appears to be compensated at the present time based on clear lungs and no edema. (4) Yeast dermatitis Current visit: Yes Status: Acute Has severe candidal dermatitis involving the vulvar area and perirectal area. This is been addressed with topical antifungal agents etc. 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 Blood sugars are improved but continued to be elevated. Management per hospitalists. DVT Prophylaxis: Lovenox Resuscitation Status: Full Code - Course Hospital Course: Patel Meng MD: - Interventions to Obtain Goals PT Treatment Plan: Balance/Proprioception, Functional Activities, Gait Training , Patient/Family Education, Therapeutic Exercise OT Treatment Plan: ADL (Basic Care), Balance Training, IADL, Ther. Exercise for ADL Goals Progress/Modifications: This somewhat medically complex patient requires a multidisciplinary approach with physical therapy and occupational therapy. She requires medical supervision in view of her diabetes mellitus which has not been controlled as well as the severe vulvar/buttock area sheyla dermatitis. She requires close 24 hour rehabilitation nursing monitoring of her blood sugars, blood pressures, cardiac status, mental status and to treat the severe vaginal/vulvar yeast involvement.
--- NOTE | 2018-01-09 16:12 | IRU Plan of Care ---
[facility] Overall Plan of Care - Date Date: 01/09/18 - Patient Impairments (1) Debilitated Code(s): R53.81 - Other malaise Status: Acute Classification: Present on IRF Admission, IRF Tx That Should Address Diagnosis, Diagnosis Requiring Medical Follow Up (2) Body mass index (BMI) of greater than 35 to 39.9 with comorbidity Status: Chronic Classification: Present on IRF Admission, IRF Tx That Should Address Diagnosis (3) Diastolic CHF, chronic Code(s): I50.32 - Chronic diastolic (congestive) heart failure Status: Chronic Classification: Diagnosis Requiring Medical Follow Up (4) Yeast dermatitis Code(s): B37.2 - Candidiasis of skin and nail Status: Acute Classification: Present on IRF Admission, IRF Tx That Should Address Diagnosis, Diagnosis Requiring Medical Follow Up (5) Hypertension Qualifiers: Hypertension type: essential hypertension Qualified Code(s): I10 - Essential (primary) hypertension Code(s): I10 - Essential (primary) hypertension Status: Chronic Classification: Present on IRF Admission, IRF Tx That Should Address Diagnosis, Diagnosis Requiring Medical Follow Up (6) Osteoarthritis of knees, bilateral Qualifiers: Osteoarthritis type: primary Qualified Code(s): M17.0 - Bilateral primary osteoarthritis of knee Code(s): M17.0 - Bilateral primary osteoarthritis of knee Status: Chronic Classification: Present on IRF Admission, Diagnosis Requiring Medical Follow Up (7) Type 2 diabetes mellitus with hyperglycemia Qualifiers: Diabetes mellitus residential insulin use: with intermediate designer use Qualified Code( s): E11.65 - Type 2 diabetes mellitus with hyperglycemia; Z79.4 - penitentiary ( current) use of insulin Code(s): E11.65 - Type 2 diabetes mellitus with hyperglycemia Status: Chronic Classification: Present on IRF Admission, IRF Tx That Should Address Diagnosis, Diagnosis Requiring Medical Follow Up - Relevant Changes Relevant Changes: No Reviewed: I have reviewed the patient's information and concur with the finding and results of the pre-admission screen. Certification: I certify the patient for rehabilitation. - Medical Prognosis Medical Prognosis: Good Vital Signs: Last Vital Signs Temp 98.3 F 01/09/18 15:36 Pulse 86 01/09/18 15:36 Resp 16 01/09/18 15:36 BP 138/66 01/09/18 15:36 Pulse Ox 97 01/09/18 15:36 - Anticipated Interventions Anticipated Interventions: The patient requires inpatient IRF care for PT, OT, and/or ST for residuals remaining from DKA and debilitation resulting in muscular weakness and strength deficits. An individualized overall plan of care has been developed after careful review of the patient's preadmission screening, post admission physician evaluation and assessments of all therapy disciplines and/or other pertinent clinicians involved in treating the patient. This indicates medical necessity and rehabilitation necessity have been established through a thorough review of all available medical information. - Current Functional Status Failed Alternative Therapy: Arrived from Acute Care Patient Requires: The patient requires oversight by rehabilitation physician to manage their rehabilitation treatment plan and multidisciplinary approach to care that can only be provided in an IRF and requires a multidisciplinary approach to care, provided by professional PTs, OTs, STs, rehabilitation nurses, and may require STs, dieticians, and RTS. This is not available in lesser levels of care. Physical Therapy Minutes: 90 Occupational Therapy Minutes: 90 Therapy: The patient is to receive therapy at least 5 days a week. - Anticipated LOS/Outcomes Anticipated Functional Outcome: It is anticipated the patient will be able to return to her home at modified independent level of functioning. She will still require assistance for IADLs but her ability to perform personal care will be significantly improved. Anticipated Length of Stay (days): 10 Anticipated DC Destination: Home, Self Care, Home Health Service Home Safety Plan: The patient will be provided with the development of a Home Safety Plan for return to a home or home-like environment and and to ensure safety post discharge. - Plan to Avoid Complications Barriers to Attaining Goals: Weakness, Endurance, Comprehension, Medical Limitation Plan to Avoid Complications: The patient cannot receive this care in a lesser intensive setting such as Assisted or Outpatient Therapy due to the patient requiring the following : The patient requires close 24 hour rehabilitation nursing monitoring of her blood sugars, blood pressure and cardiac status. She requires frequent verbal cues for orientation. She requires a multidisciplinary approach with PT and OT to allow her to improve her function and return to her home safely. This requires medical supervision.
[2018-01-09] MEDS: INSULIN ASPART 100unit/ml INJECTION SQ SCH (17:19)
[2018-01-09] MEDS: INSULIN GLARGINE 100unit/ml INJECTION SQ SCH (20:38)
[2018-01-09] MEDS: SIMVASTATIN 40 MG TABLET PO SCH (20:39)
[2018-01-10] MEDS: FLUCONAZOLE 100 MG TABLET PO SCH (08:56)
[2018-01-10] MEDS: AMLODIPINE/BENAZEPRIL 5mg/10mg CAPSULE PO SCH (08:57)
[2018-01-10] MEDS: METFORMIN 500 MG TABLET PO SCH ×2 (08:57→17:45)
[2018-01-10] MEDS: ACETAMINOPHEN 500 MG TABLET PO SCH ×4 (08:57→20:55)
[2018-01-10] MEDS: ENOXAPARIN 40 MG/0.4 ML INJECTION SQ SCH (08:57)
[2018-01-10] MEDS: POLYETHYL GLYCOL 3350 17gm PACKET PO SCH (08:58)
[2018-01-10] MEDS: INSULIN ASPART 100unit/ml INJECTION SQ SCH ×3 (09:11→17:45)
[2018-01-10] MEDS: ASPIRIN *EC* 81 MG TABLET PO SCH (12:19)
[2018-01-10] MEDS: INSULIN GLARGINE 100unit/ml INJECTION SQ SCH (20:54)
[2018-01-10] MEDS: SIMVASTATIN 40 MG TABLET PO SCH (20:55)
[2018-01-11] MEDS: ACETAMINOPHEN 500 MG TABLET PO SCH ×4 (07:41→20:52)
[2018-01-11] MEDS: POLYETHYL GLYCOL 3350 17gm PACKET PO SCH (08:52)
[2018-01-11] MEDS: FLUCONAZOLE 100 MG TABLET PO SCH (08:53)
[2018-01-11] MEDS: INSULIN ASPART 100unit/ml INJECTION SQ SCH ×3 (08:53→17:19)
[2018-01-11] MEDS: METFORMIN 500 MG TABLET PO SCH ×2 (08:53→17:18)
[2018-01-11] MEDS: AMLODIPINE/BENAZEPRIL 5mg/10mg CAPSULE PO SCH (08:53)
[2018-01-11] MEDS: ENOXAPARIN 40 MG/0.4 ML INJECTION SQ SCH (08:55)
[2018-01-11] MEDS: ASPIRIN *EC* 81 MG TABLET PO SCH (12:34)
[2018-01-11] MEDS: INSULIN GLARGINE 100unit/ml INJECTION SQ SCH (20:53)
[2018-01-11] MEDS: SIMVASTATIN 40 MG TABLET PO SCH (20:53)
[2018-01-12] MEDS: HYDROMORPHONE 2 MG TABLET PO PRN (05:00)
--- NOTE | 2018-01-12 07:34 | Endocrinology Progress Note ---
Subjective Principal diagnosis: Type 2 diabetes mellitus Interval history: Was hypoglycemic this morning again, even after breakfast. Over the weekend she has FBS in the 60's. Exam Vital signs: Temperature 97.5 F 01/11/18 21:09 Pulse Rate 89 01/11/18 21:09 Respiratory Rate 18 01/11/18 21:09 Blood Pressure 124/57 01/11/18 21:09 Pulse Oximetry 96 01/11/18 21:09 Inpatient Medications: Generic Name Dose Route Start Last Admin Trade Name Freq PRN Reason Stop Dose Admin Acetaminophen 1,000 mg 01/08/18 21:00 01/11/18 20:52 Tylenol PO 500 mg TID REDD Administration Amlodipine/Benazepril HCl 1 cap 01/09/18 09:00 01/11/18 08:53 Lotrel PO 1 cap DAILY REDD Administration Aspirin 81 mg 01/09/18 12:00 01/11/18 12:34 Ecotrin PO 81 mg 1200 REDD Administration Bisacodyl 10 mg 01/08/18 17:09 Dulcolax RECTALLY DAILY PRN Constipation Enoxaparin Sodium 40 mg 01/09/18 09:00 01/11/18 08:55 Lovenox SQ 40 mg DAILY REDD Administration Fluconazole 200 mg 01/09/18 09:00 01/11/18 08:53 Diflucan 100 Mg Tablet PO 01/13/18 23:59 200 mg DAILY REDD Administration Hydromorphone HCl 2 mg 01/08/18 17:09 01/12/18 05:00 Dilaudid PO 2 mg Q4H PRN Administration Pain Insulin Aspart 3 - 12 unit 01/08/18 17:09 01/10/18 10:27 Novolog SQ 4 unit SS PRN Administration Hyperglycemia Protocol Insulin Aspart 26 unit 01/10/18 08:00 01/11/18 08:53 Novolog SQ 26 unit 0800 REDD Administration Insulin Aspart 26 unit 01/10/18 11:30 01/11/18 12:34 Novolog SQ 26 unit ACL REDD Administration Insulin Aspart 26 unit 01/09/18 17:00 01/11/18 17:19 Novolog SQ 26 unit ACS REDD Administration Insulin Glargine 94 unit 01/08/18 21:00 01/11/18 20:53 Lantus SQ 94 unit HS REDD Administration Metformin HCl 500 mg 01/08/18 17:30 01/11/18 17:18 Glucophage PO 500 mg BIDWM REDD Administration Nystatin 1 applic 01/08/18 21:00 01/11/18 20:53 Mycostatin TP 1 applic TID REDD Administration Polyethylene Glycol 17 gm 01/09/18 09:00 01/11/18 08:52 Miralax PO 17 gm DAILY REDD Administration Simvastatin 40 mg 01/08/18 21:00 01/11/18 20:53 Zocor PO 40 mg HS REDD Administration Discontinued Medications Generic Name Dose Route Start Last Admin Trade Name Richie PRN Reason Stop Dose Admin Insulin Aspart 30 unit 01/09/18 08:00 01/09/18 08:41 Novolog SQ 30 unit 0800 REDD Administration Insulin Aspart 30 unit 01/09/18 17:00 Novolog SQ ACS REDD Insulin Aspart 30 unit 01/09/18 11:30 01/09/18 12:24 Novolog SQ Not Given ACL REDD - Constitutional no acute distress - Routine HEENT Exam Head: Present: normocephalic, atraumatic Eye: Present: EOMI ENT: Present: mucous membranes moist - Routine Neck Exam Absent: thyromegaly - Routine Respiratory Exam Absent: dyspnea - Routine Cardiovascular Exam Present: RRR - Routine Abdominal Exam Present: soft, normoactive bowel sounds - Routine Extremities Exam Absent: edema - Routine Skin Exam Present: dry, warm - Routine Neurological Exam Present: alert, motor deficit (generalized weakness) - Routine Psychiatric Exam Present: normal affect - Additional findings Additional findings: Laboratory Tests 01/11/18 01/11/18 01/11/18 10:16 14:25 19:40 Glucometer 140 91 89 01/12/18 04:54 Glucometer 61 Laboratory Tests 01/12/18 01/12/18 01/12/18 10:40 11:00 11:21 Glucometer 64 56 63 01/12/18 11:43 Glucometer 73 Assessment and Plan (1) Type 2 diabetes mellitus with hyperglycemia Current visit: Yes Status: Chronic Needs less basal insulin (usually was only taking 80 units of Lantus at home since Solostar pen does not administer any higher dose) and should probably taper mealtime boluses as well. Then if tighter control is needed we can advance the dose of metformin. Spoke with son and spouse regarding insulin plans.
[2018-01-12] MEDS: ACETAMINOPHEN 500 MG TABLET PO SCH ×3 (08:55→21:24)
[2018-01-12] MEDS: AMLODIPINE/BENAZEPRIL 5mg/10mg CAPSULE PO SCH (08:55)
[2018-01-12] MEDS: ENOXAPARIN 40 MG/0.4 ML INJECTION SQ SCH (08:56)
[2018-01-12] MEDS: POLYETHYL GLYCOL 3350 17gm PACKET PO SCH (08:56)
[2018-01-12] MEDS: FLUCONAZOLE 100 MG TABLET PO SCH (08:56)
[2018-01-12] MEDS: METFORMIN 500 MG TABLET PO SCH ×2 (08:56→17:37)
[2018-01-12] MEDS: INSULIN ASPART 100unit/ml INJECTION SQ SCH ×3 (08:57→17:37)
[2018-01-12] MEDS: ASPIRIN *EC* 81 MG TABLET PO SCH (12:16)
--- NOTE | 2018-01-12 13:18 | Wound Care Progress Note ---
Wound Center Progress Note: Went to check on pt who was sitting up eating lunch in dinning room. At this time staffing administrator explained about changing the drsg on Friday and the apperance of wound. Will check back on Sunday 01/14
--- NOTE | 2018-01-12 13:24 | IRU Progress Note ---
- Subjective/Serverity of Illness Date: 01/12/18 Ms. Blair was initially evaluated in the gymnasium area on inpatient rehabilitation. Subsequently I reassessed her in her room with the nurse present. Unfortunately she displays lack of motivation much the time and requires verbal cues to participate. There is a significant issue of reduced cognition/memory loss. She tries to cover this up quite a bit. With regard to therapy, upper body dressing is with standby assist versus supervision. Lower body dressing requires minimum assistance. Transfers have improved from minimum assistance to standby assist. For physical therapy, patient is cooperative but asks for rest breaks. She was able to ambulate 60 feet today with standby assist with a front-wheeled walker. From a cognition standpoint, she knew that this was December but thought the year was 2019. She does know that she is at [facility]. Her blood sugars are doing quite well on a reduced dose of Lantus. Dr. Bhat is following in this regard. C-peptide is low. I inspected her vulvar/buttock candidiasis upon admission 3 days ago and again inspected that today with the nurse present on both occasions. The area in the buttock and vulvar area is much improved. It remains red but is much less intense. Groins are still involved significantly bilaterally. The small scabbed area on the left ischial tuberosity has come off. Underneath the pannus, I do not see evidence of inflammation at present. Nystatin is being used consistently. Exam Vital Signs: Temperature 98.4 F 01/12/18 08:00 Pulse Rate 80 01/12/18 08:00 Respiratory Rate 16 01/12/18 08:00 Blood Pressure 136/63 01/12/18 08:00 Pulse Oximetry 98 01/12/18 08:00 Height/Weight/BMI: Height 1.6 m Weight 98.9 kg Body Mass Index 38.6 - Constitutional Present: no acute distress, well nourished, well developed, obese Comments: Easily fatigued. - Routine HEENT Exam Eye: Present: EOMI ENT: Present: mucous membranes moist, oropharynx clear - Routine Respiratory Exam Present: decreased breath sounds, CTA bilaterally. Absent: wheezes - Routine Cardiovascular Exam Present: RRR, S1, S2. Absent: murmur - Routine Abdominal Exam Present: soft, normoactive bowel sounds, non distended. Absent: tenderness - Routine Extremities Exam Present: edema (vs adipose tissue around the ankles), normal capillary refill - Routine Skin Exam Present: dry, warm, rash (the vulvar/groin/buttock rash is significantly less intense than when I saw 3 days ago.) - Routine Neurological Exam Present: alert, CN II-XII intact. Absent: oriented X3 She does display memory loss but does try to cover it up. - Routine Psychiatric Exam Present: normal affect, anxious Results IRU - Labs Labs: Have reviewed her laboratory findings as well as therapy notes and chart data. IRU A/P (1) Debilitated Current visit: Yes Status: Acute Patient is substantially debilitated. This is likely due to a combination of factors. Reduced cognition is an issue. She is cooperative with therapy but does require motivation. She is making progress. (2) Body mass index (BMI) of greater than 35 to 39.9 with comorbidity Current visit: No Status: Chronic (3) Diastolic CHF, chronic Current visit: Yes Status: Chronic She does have easy fatigability. However her lungs remain clear. (4) Yeast dermatitis Current visit: Yes Status: Acute She has had severe vulvar and groin candidiasis. Areas of redness were again inspected today with nurse present and they're much less intense. (5) Hypertension Qualifiers: Hypertension type: essential hypertension Qualified Code(s): I10 - Essential (primary) hypertension Current visit: No Status: Chronic Her blood pressures are well controlled at present. (6) Osteoarthritis of knees, bilateral Qualifiers: Osteoarthritis type: primary Qualified Code(s): M17.0 - Bilateral primary osteoarthritis of knee Current visit: No Status: Chronic (7) Type 2 diabetes mellitus with hyperglycemia Qualifiers: Diabetes mellitus watermelon inspector insulin use: with long-term use Qualified Code( s): E11.65 - Type 2 diabetes mellitus with hyperglycemia; Z79.4 - watermelon inspector ( current) use of insulin Current visit: Yes Status: Chronic Patient actually has evolved into insulin deficiency/type 1 diabetes at present. Her blood sugars are much more well controlled at present. Discussed with the patient's son the importance of family overseeing her insulin administration and blood glucose monitoring. DVT Prophylaxis: Lovenox Resuscitation Status: Full Code - Course Hospital Course: Patel Meng MD: 01/12/18 13:27 Blood sugars are improved. Vulvar candidiasis improved. Reduced cognition noted. Making progress with OT and PT. - Interventions to Obtain Goals PT Treatment Plan: Balance/Proprioception, Functional Activities, Gait Training , Patient/Family Education, Therapeutic Exercise OT Treatment Plan: ADL (Basic Care), Balance Training, IADL, Ther. Exercise for ADL Goals Progress/Modifications: While Rehana is cooperative with therapy she does complain of easy fatigability and requests frequent rest breaks. However, her lungs are clear and I think this is more likely related to debilitation/deconditioning rather than exacerbation of her heart failure at present. I reviewed her lab findings. C- peptide is low indicating that she has evolved into a type I or insulin deficiency state. Dr. Bhat is managing her diabetes at present and her sugars are doing much better. She has made progress with therapy. Her candidiasis is improved. Discussed case with the patient's and her son.
--- NOTE | 2018-01-12 16:15 | Progress Note ---
- Date 01/12/18 Subjective: Rehana is seen this afternoon sitting in her room with at her side. She is having a snack as her blood sugar was in the 80's this afternoon. She is without complaints of pain, shortness of breath or other complaints. She feels that she is working hard with PT. BGMs all day have been low in the 60's. Vital signs stable. Objective Vital signs: Temperature 98.8 F 01/12/18 16:00 Pulse Rate 97 01/12/18 16:00 Respiratory Rate 24 01/12/18 16:00 Blood Pressure 142/71 H 01/12/18 16:00 Pulse Oximetry 97 01/12/18 16:00 Height/Weight/BMI: Height 1.6 m Weight 98.9 kg Body Mass Index 38.6 - Constitutional Present: no acute distress, well nourished, well developed - Routine HEENT Exam Eye: Present: EOMI ENT: Present: mucous membranes moist, dentition normal - Routine Respiratory Exam Present: CTA bilaterally. Absent: wheezes - Routine Cardiovascular Exam Present: RRR. Absent: murmur - Routine Abdominal Exam Present: soft, normoactive bowel sounds, non distended. Absent: tenderness - Routine Extremities Exam Present: normal capillary refill - Routine Skin Exam Present: dry, warm - Routine Neurological Exam Present: alert, oriented X3, CN II-XII intact - Routine Lymphatic Exam Lymphatic: Absent: adenopathy - Routine Psychiatric Exam Present: normal affect Results - Labs CBC & Chem 7: 01/09/18 04:53 01/09/18 04:53 Assessment and Plan Assessment and Plan: Assessment: Generalized debility and weakness. Recent DKA with hyperosmolality, resolved. Uncontrolled DM, Type 2 on insulin (A1C >15%). Yeast infection extending from gluteal crease to vulva Diabetic retinopathy. Morbid obesity - BMI 37.6. CHF-LVH/diastolic dysfunction, EF 60% on echo 01/2017. Hyperlipidemia. Hypertension. Osteoarthritis, knees. History of TIA. Plan - 01/12/18 Monitor blood sugars closely. Dr Bhat continues to follow patient. She has had some hypoglycemia today Lantus decreased this morning to 80 units. Continue on Diflucan through tomorrow 01/13 for yeast infection Encourage ongoing strengthening with PT/OT Routine labs on 01/09 were normal - Physician Narrative Narrative: Date: 01/12/18 Time: 1611 Hospital Course Summary Disclaimer: The visit summary below is not to be considered part of the above Progress Note. Hospital Course: Plan - 01/09/18 Agree with admission to IRU for continued strengthening and improvement in functional abilities. Hospitalist service consulted for continued medical management. Dr. Bhat consulted for continued diabetic management. Monitor blood sugars closely. Patient was started on metformin 500mg BID on 01/06/[address] Bhat with plan to titrate up weekly to 1000mg BID. Orders per Dr. Bhat. Continue NovoLog 30 units TID with meals and lantus 94 units QHS. Insulin adjustments per Dr. Bhat. Continue Metformin 500mg BID. Plan to titrate metformin up weekly until ideal dose of 1000mg BID is achieved - orders per Dr. Bhat. Encourage continued education with childbirth educator for improved compliance at home. Will continue other home medications. Monitor blood pressures closely. Continue wound care for skin breakdown to buttock. Previously recommended 3M advanced protectant and Mepilex to the area while frequently repositioning to avoid excess weight to the area. Continue Diflucan and nystatin for yeast. Therapies and pain control per Dr. Meng. Will recheck labs periodically throughout admission. Upon discharge, patient's care will be returned to her PCP, Hien Westfall APRN. Patient is a full code. 01/12/18 Monitor blood sugars closely. Dr Bhat continues to follow patient. She has had some hypoglycemia today Lantus decreased this morning to 80 units. Continue on Diflucan through tomorrow 01/13 for yeast infection Encourage ongoing strengthening with PT/OT Routine labs on 01/09 were normal
[2018-01-12] MEDS ORDERED: INSULIN GLARGINE 100unit/ml INJECTION SQ SCH (21:00)
--- NOTE | 2018-01-13 07:55 | Endocrinology Progress Note ---
Subjective Principal diagnosis: Type 2 diabetes mellitus Interval history: Was hypoglycemic this morning again, even after tapering Lantus a lot last night. Exam Vital signs: Temperature 98.3 F 01/12/18 20:25 Pulse Rate 94 01/12/18 20:25 Respiratory Rate 20 01/12/18 20:25 Blood Pressure 118/59 01/12/18 20:25 Pulse Oximetry 97 01/12/18 20:25 Inpatient Medications: Generic Name Dose Route Start Last Admin Trade Name Richie PRN Reason Stop Dose Admin Acetaminophen 1,000 mg 01/08/18 21:00 01/12/18 21:24 Tylenol PO 1,000 mg TID REDD Administration Amlodipine/Benazepril HCl 1 cap 01/09/18 09:00 01/12/18 08:55 Lotrel PO 1 cap DAILY REDD Administration Aspirin 81 mg 01/09/18 12:00 01/12/18 12:16 Ecotrin PO 81 mg 1200 REDD Administration Bisacodyl 10 mg 01/08/18 17:09 Dulcolax RECTALLY DAILY PRN Constipation Enoxaparin Sodium 40 mg 01/09/18 09:00 01/12/18 08:56 Lovenox SQ 40 mg DAILY REDD Administration Fluconazole 200 mg 01/09/18 09:00 01/12/18 08:56 Diflucan 100 Mg Tablet PO 01/13/18 23:59 200 mg DAILY REDD Administration Hydromorphone HCl 2 mg 01/08/18 17:09 01/12/18 05:00 Dilaudid PO 2 mg Q4H PRN Administration Pain Insulin Aspart 3 - 12 unit 01/08/18 17:09 01/10/18 10:27 Novolog SQ 4 unit SS PRN Administration Hyperglycemia Protocol Insulin Aspart 26 unit 01/10/18 08:00 01/12/18 08:57 Novolog SQ 26 unit 0800 REDD Administration Insulin Aspart 26 unit 01/10/18 11:30 01/12/18 12:17 Novolog SQ Not Given ACL REDD Insulin Aspart 26 unit 01/09/18 17:00 01/12/18 17:37 Novolog SQ 26 unit ACS REDD Administration Insulin Glargine 80 unit 01/12/18 21:00 01/12/18 21:25 Lantus SQ 80 unit HS REDD Administration Metformin HCl 500 mg 01/08/18 17:30 01/12/18 17:37 Glucophage PO 500 mg BIDWM REDD Administration Nystatin 1 applic 01/08/18 21:00 01/12/18 21:29 Mycostatin TP 1 applic TID REDD Administration Polyethylene Glycol 17 gm 01/09/18 09:00 01/12/18 08:56 Miralax PO 17 gm DAILY REDD Administration Simvastatin 40 mg 01/08/18 21:00 01/11/18 20:53 Zocor PO 40 mg HS REDD Administration Discontinued Medications Generic Name Dose Route Start Last Admin Trade Name Richie PRN Reason Stop Dose Admin Insulin Aspart 30 unit 01/09/18 08:00 01/09/18 08:41 Novolog SQ 30 unit 0800 REDD Administration Insulin Aspart 30 unit 01/09/18 17:00 Novolog SQ ACS REDD Insulin Aspart 30 unit 01/09/18 11:30 01/09/18 12:24 Novolog SQ Not Given ACL REDD Insulin Glargine 94 unit 01/08/18 21:00 01/11/18 20:53 Lantus SQ 94 unit HS REDD Administration - Constitutional no acute distress - Routine HEENT Exam Head: Present: normocephalic, atraumatic Eye: Present: EOMI ENT: Present: mucous membranes moist - Routine Neck Exam Absent: thyromegaly - Routine Respiratory Exam Absent: dyspnea - Routine Cardiovascular Exam Present: RRR - Routine Abdominal Exam Present: soft, normoactive bowel sounds - Routine Extremities Exam Absent: edema - Routine Skin Exam Present: dry, warm - Routine Neurological Exam Present: motor deficit (generalized weakness) - Routine Psychiatric Exam Present: normal affect, good insight - Additional findings Additional findings: Laboratory Tests 01/12/18 01/12/18 01/12/18 11:43 14:06 20:21 Glucometer 73 130 91 01/13/18 01/13/18 05:31 06:00 Glucometer 56 133 Assessment and Plan (1) Type 2 diabetes mellitus with hyperglycemia Current visit: Yes Status: Chronic BS is still falling too much overnight. Will taper Lantus to 70 units tonight.
[2018-01-13] MEDS: METFORMIN 500 MG TABLET PO SCH ×2 (08:20→17:17)
[2018-01-13] MEDS: AMLODIPINE/BENAZEPRIL 5mg/10mg CAPSULE PO SCH (08:20)
[2018-01-13] MEDS: INSULIN ASPART 100unit/ml INJECTION SQ SCH ×3 (08:21→17:17)
[2018-01-13] MEDS: ENOXAPARIN 40 MG/0.4 ML INJECTION SQ SCH (08:21)
[2018-01-13] MEDS: FLUCONAZOLE 100 MG TABLET PO SCH (08:21)
[2018-01-13] MEDS: POLYETHYL GLYCOL 3350 17gm PACKET PO SCH (08:22)
[2018-01-13] MEDS: ACETAMINOPHEN 500 MG TABLET PO SCH ×4 (10:10→21:39)
--- NOTE | 2018-01-13 11:18 | IRU Progress Note ---
- Subjective/Serverity of Illness Date: 01/13/18 Patient is cooperative with therapy and cheerful. Does display reduced memory on this some safety concerns exist. However was involved in therapy yesterday and is aware of his role in her care at home. From a therapy standpoint she is progressing nicely. She is standby assist for transfers and ambulation with a front-wheeled walker. She refuses stair climbing. She does not have stairs at home she states. She does complain of some knee pain chronically. Her rash as of yesterday was improved. Continues on topical agents in this regard (nystatin) as well as having received Diflucan. Patient's appetite is reasonable. Her blood sugars are reviewed and are excellent. She is on 26 units of NovoLog with each meal +70 of Lantus at bedtime daily. Management per Dr. Bhat in this regard. Exam Vital Signs: Temperature 97.4 F 01/13/18 08:00 Pulse Rate 88 01/13/18 08:00 Respiratory Rate 16 01/13/18 08:00 Blood Pressure 121/56 01/13/18 08:00 Pulse Oximetry 98 01/13/18 08:00 Height/Weight/BMI: Height 1.6 m Weight 98.9 kg Body Mass Index 38.6 - Constitutional Present: no acute distress, well nourished, well developed, obese, cooperative ( although refused stair climbing.) - Routine HEENT Exam Eye: Present: EOMI ENT: Present: mucous membranes moist, oropharynx clear - Routine Respiratory Exam Present: decreased breath sounds, CTA bilaterally. Absent: wheezes - Routine Cardiovascular Exam Present: RRR, S1, S2. Absent: murmur - Routine Abdominal Exam Present: soft, normoactive bowel sounds, non distended. Absent: tenderness - Routine Extremities Exam Present: edema (trace to 1+ edema versus adipose tissue.), normal capillary refill. Absent: pulses intact - Routine Skin Exam Present: dry, warm - Routine Neurological Exam Present: alert, CN II-XII intact. Absent: oriented X3 Memory loss noted. - Routine Psychiatric Exam Present: normal affect. Absent: good insight, good judgment Results IRU - Labs Labs: Have reviewed chart data and other providers notes. IRU A/P (1) Debilitated Current visit: Yes Status: Acute Her generalized weakness is improving. Does have memory loss issues and thus some safety awareness concerns. Nevertheless she has done well with therapy and is standby assist for transfers and ambulation with a front-wheeled walker. (2) Body mass index (BMI) of greater than 35 to 39.9 with comorbidity Current visit: No Status: Chronic (3) Diastolic CHF, chronic Current visit: Yes Status: Chronic Currently fluid balance appears to be appropriate. Her lungs remain clear. She may have a trace of edema versus adipose tissue around the ankles. (4) Yeast dermatitis Current visit: Yes Status: Acute Has severe yeast dermatitis. Remains on topical nystatin with improvement. This should improve further with better control of her blood sugars. (5) Hypertension Qualifiers: Hypertension type: essential hypertension Qualified Code(s): I10 - Essential (primary) hypertension Current visit: No Status: Chronic Blood pressure management appears to be good. Avoiding hypotension and excessive hypertension. (6) Osteoarthritis of knees, bilateral Qualifiers: Osteoarthritis type: primary Qualified Code(s): M17.0 - Bilateral primary osteoarthritis of knee Current visit: No Status: Chronic (7) Type 2 diabetes mellitus with hyperglycemia Qualifiers: Diabetes mellitus halfway insulin use: with halfway use Qualified Code( s): E11.65 - Type 2 diabetes mellitus with hyperglycemia; Z79.4 - prison ( current) use of insulin Current visit: Yes Status: Chronic Had a hypoglycemic episode yesterday. Doing well today. Insulin dose has been decreased. Based on low C-peptide likely she has type 1 diabetes at present however. DVT Prophylaxis: Lovenox Resuscitation Status: Full Code - Course Hospital Course: Patel Meng MD: 01/12/18 13:27 Blood sugars are improved. Vulvar candidiasis improved. Reduced cognition noted. Making progress with OT and PT. 01/13/18 11:19 Progressing well with therapy and is standby assist for many activities. Decreased memory is a concern. Blood sugars are doing well. - Interventions to Obtain Goals PT Treatment Plan: Balance/Proprioception, Functional Activities, Gait Training , Patient/Family Education, Therapeutic Exercise OT Treatment Plan: ADL (Basic Care), Balance Training, IADL, Ther. Exercise for ADL Goals Progress/Modifications: Have discussed with the patient's son yesterday and her today the patient's status. She will require assistance at home quickly with IADLs. She will also require assistance for monitoring her blood sugars and taking her insulin on accurate and regular basis. Her blood sugars are doing well at the present time although had hypoglycemia yesterday. This is despite having lower the Lantus previously. She is now on 26 units of NovoLog with each meal +70 units of Lantus at bedtime. Appetite is good. She is doing well with therapy. She is standby assist for many activities and transfers. She is ambulating with a front-wheeled walker. She is nearly back to her baseline level of activity. Her blood pressures are doing well. Does complain of knee pain which is chronic for her. Her vulvar/buttock rash/candidiasis was improved yesterday.
[2018-01-13] MEDS: ASPIRIN *EC* 81 MG TABLET PO SCH (12:14)
[2018-01-13] MEDS ORDERED: ACETAMINOPHEN 500 MG TABLET PO PRN (14:57)
[2018-01-13] MEDS: INSULIN GLARGINE 100unit/ml INJECTION SQ SCH (21:38)
[2018-01-13] MEDS: SIMVASTATIN 40 MG TABLET PO SCH (21:40)
[2018-01-14] MEDS: HYDROMORPHONE 2 MG TABLET PO PRN (01:00)
--- NOTE | 2018-01-14 07:50 | Endocrinology Progress Note ---
Subjective Principal diagnosis: Type 2 diabetes mellitus Interval history: No further hypoglycemia after tapering Lantus down to 70 units last night. Exam Vital signs: Temperature 97.5 F 01/13/18 21:08 Pulse Rate 95 01/13/18 21:08 Respiratory Rate 20 01/14/18 01:00 Blood Pressure 131/66 01/13/18 21:08 Pulse Oximetry 95 01/13/18 21:08 Inpatient Medications: Generic Name Dose Route Start Last Admin Trade Name iRchie PRN Reason Stop Dose Admin Acetaminophen 1,000 mg 01/13/18 15:00 01/13/18 16:34 Tylenol PO Not Given 09,15 REDD Acetaminophen 500 mg 01/13/18 21:00 01/13/18 21:39 Tylenol PO 500 mg HS REDD Administration Amlodipine/Benazepril HCl 1 cap 01/09/18 09:00 01/13/18 08:20 Lotrel PO 1 cap DAILY REDD Administration Aspirin 81 mg 01/09/18 12:00 01/13/18 12:14 Ecotrin PO 81 mg 1200 REDD Administration Bisacodyl 10 mg 01/08/18 17:09 Dulcolax RECTALLY DAILY PRN Constipation Enoxaparin Sodium 40 mg 01/09/18 09:00 01/13/18 08:21 Lovenox SQ 40 mg DAILY REDD Administration Hydromorphone HCl 2 mg 01/08/18 17:09 01/14/18 01:00 Dilaudid PO 2 mg Q4H PRN Administration Pain Insulin Aspart 3 - 12 unit 01/08/18 17:09 01/10/18 10:27 Novolog SQ 4 unit SS PRN Administration Hyperglycemia Protocol Insulin Aspart 26 unit 01/10/18 08:00 01/13/18 08:21 Novolog SQ 26 unit 0800 REDD Administration Insulin Aspart 26 unit 01/10/18 11:30 01/13/18 12:13 Novolog SQ 26 unit ACL REDD Administration Insulin Aspart 26 unit 01/09/18 17:00 01/13/18 17:17 Novolog SQ 26 unit ACS REDD Administration Insulin Glargine 70 unit 01/13/18 21:00 01/13/18 21:38 Lantus SQ 70 unit HS REDD Administration Metformin HCl 500 mg 01/08/18 17:30 01/13/18 17:17 Glucophage PO 500 mg BIDWM REDD Administration Nystatin 1 applic 01/08/18 21:00 01/14/18 05:36 Mycostatin TP Not Given TID REDD Polyethylene Glycol 17 gm 01/09/18 09:00 01/13/18 08:22 Miralax PO Not Given DAILY REDD Simvastatin 40 mg 01/08/18 21:00 01/13/18 21:40 Zocor PO 40 mg HS REDD Administration Discontinued Medications Generic Name Dose Route Start Last Admin Trade Name Freq PRN Reason Stop Dose Admin Acetaminophen 1,000 mg 01/08/18 21:00 01/13/18 15:07 Tylenol PO Not Given TID REDD Acetaminophen 500 mg 01/13/18 14:57 Tylenol PO HS PRN Discomfort Fluconazole 200 mg 01/09/18 09:00 01/13/18 08:21 Diflucan 100 Mg Tablet PO 01/13/18 23:59 200 mg DAILY REDD Administration Insulin Aspart 30 unit 01/09/18 08:00 01/09/18 08:41 Novolog SQ 30 unit 0800 REDD Administration Insulin Aspart 30 unit 01/09/18 17:00 Novolog SQ ACS REDD Insulin Aspart 30 unit 01/09/18 11:30 01/09/18 12:24 Novolog SQ Not Given ACL REDD Insulin Glargine 94 unit 01/08/18 21:00 01/11/18 20:53 Lantus SQ 94 unit HS REDD Administration Insulin Glargine 80 unit 01/12/18 21:00 01/12/18 21:25 Lantus SQ 80 unit HS REDD Administration - Constitutional no acute distress - Routine HEENT Exam Head: Present: normocephalic, atraumatic Eye: Present: EOMI ENT: Present: mucous membranes moist - Routine Neck Exam Absent: thyromegaly - Routine Respiratory Exam Absent: dyspnea - Routine Cardiovascular Exam Present: RRR - Routine Abdominal Exam Present: soft, normoactive bowel sounds - Routine Extremities Exam Absent: edema - Routine Skin Exam Present: dry, warm - Routine Neurological Exam Present: alert, motor deficit (generalized weakness) - Routine Psychiatric Exam Present: normal affect - Additional findings Additional findings: Laboratory Tests 01/13/18 01/13/18 01/13/18 10:19 10:52 14:02 Glucometer 85 95 68 01/13/18 01/13/18 01/13/18 14:23 17:09 19:53 Glucometer 77 78 118 [id number] this morning. Assessment and Plan (1) Type 2 diabetes mellitus with hyperglycemia Current visit: Yes Status: Chronic Continue current insulin. No change needed today.
[2018-01-14] MEDS: POLYETHYL GLYCOL 3350 17gm PACKET PO SCH (08:49)
[2018-01-14] MEDS: METFORMIN 500 MG TABLET PO SCH ×2 (09:02→17:24)
[2018-01-14] MEDS: AMLODIPINE/BENAZEPRIL 5mg/10mg CAPSULE PO SCH (09:02)
[2018-01-14] MEDS: INSULIN ASPART 100unit/ml INJECTION SQ SCH ×3 (09:02→17:25)
[2018-01-14] MEDS: ENOXAPARIN 40 MG/0.4 ML INJECTION SQ SCH (09:02)
[2018-01-14] MEDS: ACETAMINOPHEN 500 MG TABLET PO SCH ×3 (09:02→20:26)
--- NOTE | 2018-01-14 11:35 | IRU Progress Note ---
- Subjective/Serverity of Illness Date: 01/14/18 Rehana was reassessed in her room with nurse Kary assisting. Patient does complain of easy fatigability. She denies any chest pain or shortness of breath. She has declined showering but will take a sponge bath. Inspected the buttock area and vulvar area along with abdominal folds. No redness present beneath the pannus. Minimal redness in the groin and the area in the buttock fold is much improved. No active lesions in terms of ulceration is seen. With regard to therapy, upper body dressing is standby assist lower body dressing is with minimum assistance. She is able to perform toileting with standby assist and transfers with standby assistance. For physical therapy she is transferring with standby assist and able to walk with a front-wheeled walker 50-60 feet with supervision level. She is probably back at her baseline level. She is self-limiting on much of her activities for both PT and OT. With regard to her blood sugar she continues to have some low sugars at times and Dr. Bhat is adjusting her insulin. She does complain of some right knee pain. She is receiving some Dilaudid occasionally for that and we will discontinue that. Exam Vital Signs: Temperature 97.7 F 01/14/18 08:00 Pulse Rate 88 01/14/18 08:00 Respiratory Rate 24 01/14/18 08:00 Blood Pressure 139/84 01/14/18 08:00 Pulse Oximetry 97 01/14/18 08:00 Height/Weight/BMI: Height 1.6 m Weight 98.9 kg Body Mass Index 38.6 - Constitutional Present: no acute distress, well nourished, well developed, obese - Routine HEENT Exam Eye: Present: EOMI ENT: Present: mucous membranes moist - Routine Respiratory Exam Present: CTA bilaterally. Absent: wheezes - Routine Cardiovascular Exam Present: RRR, S1, S2. Absent: murmur - Routine Abdominal Exam Present: soft, normoactive bowel sounds, non distended. Absent: tenderness - Routine Extremities Exam Present: no edema, normal capillary refill - Routine Skin Exam Present: dry, warm Comments: Inspected buttock fold area which continues to demonstrate some redness but is certainly vastly improved. No ulcerations are seen. There is some vulvar/groin redness bilaterally beginning that is improved as well. No redness under the pannus at present. - Routine Neurological Exam Present: alert, oriented X3, CN II-XII intact Short-term memory loss noted. Frequently unmotivated. - Routine Psychiatric Exam Present: normal affect IRU A/P (1) Debilitated Current visit: Yes Status: Acute Patient has functionally improved in numerous areas in terms of ADLs, transfers and ambulation. However she self limited quite a bit. She is not terribly active at home. She will require assistance with some ADLs at home. (2) Body mass index (BMI) of greater than 35 to 39.9 with comorbidity Current visit: No Status: Chronic (3) Diastolic CHF, chronic Current visit: Yes Status: Chronic Her lungs sound clear. She denies any shortness of breath at present. (4) Yeast dermatitis Current visit: Yes Status: Acute The candidal inflammation is much improved in the buttock fold and groins. 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 Dr. Bhat monitoring and adjusting insulin. DVT Prophylaxis: Lovenox Resuscitation Status: Full Code - Course Hospital Course: Patel Meng MD: 01/12/18 13:27 Blood sugars are improved. Vulvar candidiasis improved. Reduced cognition noted. Making progress with OT and PT. 01/13/18 11:19 Progressing well with therapy and is standby assist for many activities. Decreased memory is a concern. Blood sugars are doing well. 01/14/18 11:37 Progressing with therapy. Decreased memory continues to be an issue and and family are encouraged to help with diabetes management. Blood sugars improved. - Interventions to Obtain Goals PT Treatment Plan: Balance/Proprioception, Functional Activities, Gait Training , Patient/Family Education, Therapeutic Exercise OT Treatment Plan: ADL (Basic Care), Balance Training, IADL, Ther. Exercise for ADL Goals Progress/Modifications: Patient was not terribly active at home prior to this. She has improved and is likely even more active now than she is at home. Team meeting today for further multidisciplinary input. Her blood sugars are coming under much improved control. In addition, the yeast dermatitis is significantly improved. We will encourage the family to be involved in her medical care as well in terms of diabetes monitoring and management.
[2018-01-14] MEDS: ASPIRIN *EC* 81 MG TABLET PO SCH (12:16)
--- NOTE | 2018-01-14 13:50 | IRU Team Meeting ---
IRU Team Meeting - Nursing Bladder Assistive Devices Utilized:: Absorbent Pad Bladder Management Level of Assist: Moderate Assistance Bladder Frequency of Accidents: No accidents Bowel Assistive Devices Utilized:: Absorbent Pad Bowel Management Level of Assist: Moderate Assistance Bowel Frequency of Accidents: No accidents Vital Signs: Vital Signs - 24 hr 01/13/18 16:00 01/13/18 21:08 01/14/18 01:00 Temperature 98.5 F 97.5 F Pulse Rate 92 95 Respiratory Rate 20 16 20 Blood Pressure 137/67 131/66 Pulse Oximetry 97 95 01/14/18 08:00 Temperature 97.7 F Pulse Rate 88 Respiratory Rate 24 Blood Pressure 139/84 Pulse Oximetry 97 Current Medications: Acetaminophen (Tylenol) 1,000 mg PO [facility] Last Admin: 01/14/18 09:02 Dose: 1,000 mg Acetaminophen (Tylenol) 500 mg PO HS [facility] Last Admin: 01/13/18 21:39 Dose: 500 mg Amlodipine/Benazepril HCl (Lotrel) 1 cap PO DAILY [facility] Last Admin: 01/14/18 09:02 Dose: 1 cap Aspirin (Ecotrin) 81 mg PO 1200 [facility] Last Admin: 01/14/18 12:16 Dose: 81 mg Bisacodyl (Dulcolax) 10 mg RECTALLY DAILY PRN PRN Reason: Constipation Diclofenac Sodium (Voltaren) 1 applic TP QID [facility] Enoxaparin Sodium (Lovenox) 40 mg SQ DAILY [facility] Last Admin: 01/14/18 09:02 Dose: 40 mg Insulin Aspart (Novolog) 3 - 12 unit SQ SS PRN; Protocol PRN Reason: Hyperglycemia Last Admin: 01/10/18 10:27 Dose: 4 unit Insulin Aspart (Novolog) 26 unit SQ 0800 [facility] Last Admin: 01/14/18 09:02 Dose: 26 unit Insulin Aspart (Novolog) 26 unit SQ ACL [facility] Last Admin: 01/14/18 12:13 Dose: 26 unit Insulin Aspart (Novolog) 26 unit SQ ACS [facility] Last Admin: 01/13/18 17:17 Dose: 26 unit Insulin Glargine (Lantus) 70 unit SQ HS [facility] Last Admin: 01/13/18 21:38 Dose: 70 unit Metformin HCl (Glucophage) 500 mg PO BIDWM [facility] Last Admin: 01/14/18 09:02 Dose: 500 mg Nystatin (Mycostatin) 1 applic TP TID [facility] Last Admin: 01/14/18 08:48 Dose: Not Given Polyethylene Glycol (Miralax) 17 gm PO DAILY [facility] Last Admin: 01/14/18 08:49 Dose: Not Given Simvastatin (Zocor) 40 mg PO HS [facility] Last Admin: 01/13/18 21:40 Dose: 40 mg Tramadol HCl (Ultram) 50 mg PO QID PRN PRN Reason: Pain Current Medical Issues: Diabetes mellitus, type I on long-term insulin, severe yeast dermatitis involving buttock fold and vulvar area, right knee osteoarthritis, reduced cognition Comments: I certify that I personally led the interdisciplinary team meeting and agree with comments, barriers and goals indicated. Team meeting was held in the patient's room with the patient and the following family members present: patient's and patient's son Ms. Blair is on a lower dose of insulin. Her blood sugars are well controlled at present. She is eating well. The [place] dermatitis has improved. Her lungs remain clear. Does complain of right knee osteoarthritis. - Physical Therapy Bed, Chair, Wheelchair Transfer Assist: Stand By Assist/Supervision Ambulation Ability: Stand By Assist/Supervision, Household Exception Ambulation Distance: 61 Wheelchair Propulsion Ability: Stand By Assist/Supervision, Household Exception Wheelchair Propulsion Distance: 115 Stair Climbing Ability: Patient Refuses, Patient Unsafe/Unable Number of Steps Climbed: 3 Car Transfer Ability: Contact Guard Assistance Comments: Patient is back to baseline if not functioning better than baseline. Working on car transfers. Memory deficit prevents education carryover. Able to ambulate over 60 feet with standby assist with a front-wheeled walker. - Occupational Therapy Eating Ability: Stand By Assist/Supervision Grooming Ability: Stand By Assist/Supervision Bathing Ability: Minimal Assistance Upper Body Dressing Ability: Stand By Assist/Supervision Lower Body Dressing Ability: Minimal Assistance Tub Transfer Assist: Patient Refuses Toileting Assist: Stand By Assist/Supervision Toilet Transfer Assist: Contact Guard Assistance Comments: For occupational therapy, patient tends to self limit her activities. She does not wish to cook and does not wish to do stairs. She has declined the use of assistive devices. - Goals Physical Therapy Goals: 01/14/18 Goals: 1.) Car transfer at stand-by assist. 2. ) Consistent gait distance of 50 feet with front wheeled walker. Occupational Therapy Goals: 01/14/18: 1) Toilet transfer modified independent. 2) Toileting tasks using adaptive equipment modified independent. 3) Prepare simple meal modified independent. 4) Discharge planning. - Barriers to Discharge Barriers to Attaining Goals: Comprehension (verbal cues are provided to address reduced cognition.), Medical Limitation (right knee pain limits activity. Additional local measures with Voltaren gel are provided.), Other (reduced motivation noted. Patient is encouraged to participate more.) - Care Plan Anticipated Length of Stay (days): 1 Anticipated DC Destination: Home, Self Care, Home Health Service I have led this team conference and agree with the plan. Interventions/Goals: Patient self limits with regard to progress particularly with ADLs. Anticipate safe transition to her home environment with home health assistance with physical therapy tomorrow.
[2018-01-14] MEDS: TRAMADOL 50 MG TABLET PO PRN (14:52)
[2018-01-14] MEDS: DICLOFENAC 1% TOP GEL 100gm TP SCH ×2 (17:25→20:27)
[2018-01-14 20:00] VITALS: O2SAT 96
[2018-01-14] MEDS: SIMVASTATIN 40 MG TABLET PO SCH (20:26)
[2018-01-14] MEDS: INSULIN GLARGINE 100unit/ml INJECTION SQ SCH (20:36)
[2018-01-15] MEDS: TRAMADOL 50 MG TABLET PO PRN (06:45)
[2018-01-15 07:55] VITALS: BP 128/64; PULSE 77; RESP 16; TEMP 97.8
[2018-01-15] MEDS: ACETAMINOPHEN 500 MG TABLET PO SCH (08:12)
[2018-01-15] MEDS: POLYETHYL GLYCOL 3350 17gm PACKET PO SCH (08:13)
[2018-01-15] MEDS: METFORMIN 500 MG TABLET PO SCH (08:14)
[2018-01-15] MEDS: INSULIN ASPART 100unit/ml INJECTION SQ SCH ×2 (08:14→12:19)
[2018-01-15] MEDS: AMLODIPINE/BENAZEPRIL 5mg/10mg CAPSULE PO SCH (08:14)
--- NOTE | 2018-01-15 08:15 | Endocrinology Progress Note ---
Subjective Principal diagnosis: Type 2 diabetes mellitus Interval history: No further hypoglycemia past 48 hours since tapering Lantus down to 70 units. Exam Vital signs: Temperature 97.8 F 01/15/18 07:54 Pulse Rate 77 01/15/18 07:54 Respiratory Rate 16 01/15/18 07:54 Blood Pressure 128/64 01/15/18 07:54 Pulse Oximetry 96 01/15/18 07:54 Inpatient Medications: Generic Name Dose Route Start Last Admin Trade Name Richie PRN Reason Stop Dose Admin Acetaminophen 1,000 mg 01/13/18 15:00 01/14/18 14:52 Tylenol PO 1,000 mg 09,15 REDD Administration Acetaminophen 500 mg 01/13/18 21:00 01/14/18 20:26 Tylenol PO 500 mg HS REDD Administration Amlodipine/Benazepril HCl 1 cap 01/09/18 09:00 01/14/18 09:02 Lotrel PO 1 cap DAILY REDD Administration Aspirin 81 mg 01/09/18 12:00 01/14/18 12:16 Ecotrin PO 81 mg 1200 REDD Administration Bisacodyl 10 mg 01/08/18 17:09 Dulcolax RECTALLY DAILY PRN Constipation Diclofenac Sodium 1 applic 01/14/18 17:00 01/14/18 20:27 Voltaren TP 1 applic QID REDD Administration Enoxaparin Sodium 40 mg 01/09/18 09:00 01/14/18 09:02 Lovenox SQ 40 mg DAILY REDD Administration Insulin Aspart 3 - 12 unit 01/08/18 17:09 01/10/18 10:27 Novolog SQ 4 unit SS PRN Administration Hyperglycemia Protocol Insulin Aspart 26 unit 01/10/18 08:00 01/14/18 09:02 Novolog SQ 26 unit 0800 REDD Administration Insulin Aspart 26 unit 01/10/18 11:30 01/14/18 12:13 Novolog SQ 26 unit ACL REDD Administration Insulin Aspart 26 unit 01/09/18 17:00 01/14/18 17:25 Novolog SQ 26 unit ACS REDD Administration Insulin Glargine 70 unit 01/13/18 21:00 01/14/18 20:36 Lantus SQ 70 unit HS REDD Administration Metformin HCl 500 mg 01/08/18 17:30 01/14/18 17:24 Glucophage PO 500 mg BIDWM REDD Administration Nystatin 1 applic 01/08/18 21:00 01/14/18 20:27 Mycostatin TP 1 applic TID REDD Administration Polyethylene Glycol 17 gm 01/09/18 09:00 01/14/18 08:49 Miralax PO Not Given DAILY REDD Simvastatin 40 mg 01/08/18 21:00 01/14/18 20:26 Zocor PO 40 mg HS REDD Administration Tramadol HCl 50 mg 01/14/18 13:44 01/15/18 06:45 Ultram PO 50 mg QID PRN Administration Pain Discontinued Medications Generic Name Dose Route Start Last Admin Trade Name Freq PRN Reason Stop Dose Admin Acetaminophen 1,000 mg 01/08/18 21:00 01/13/18 15:07 Tylenol PO Not Given TID REDD Acetaminophen 500 mg 01/13/18 14:57 Tylenol PO HS PRN Discomfort Fluconazole 200 mg 01/09/18 09:00 01/13/18 08:21 Diflucan 100 Mg Tablet PO 01/13/18 23:59 200 mg DAILY REDD Administration Hydromorphone HCl 2 mg 01/08/18 17:09 01/14/18 01:00 Dilaudid PO 2 mg Q4H PRN Administration Pain Insulin Aspart 30 unit 01/09/18 08:00 01/09/18 08:41 Novolog SQ 30 unit 0800 REDD Administration Insulin Aspart 30 unit 01/09/18 17:00 Novolog SQ ACS REDD Insulin Aspart 30 unit 01/09/18 11:30 01/09/18 12:24 Novolog SQ Not Given ACL REDD Insulin Glargine 94 unit 01/08/18 21:00 01/11/18 20:53 Lantus SQ 94 unit HS REDD Administration Insulin Glargine 80 unit 01/12/18 21:00 01/12/18 21:25 Lantus SQ 80 unit HS REDD Administration - Constitutional no acute distress - Routine HEENT Exam Head: Present: normocephalic, atraumatic Eye: Present: EOMI, PERRL ENT: Present: mucous membranes moist - Routine Neck Exam Absent: thyromegaly - Routine Respiratory Exam Absent: dyspnea - Routine Cardiovascular Exam Present: RRR - Routine Abdominal Exam Present: soft, normoactive bowel sounds - Routine Extremities Exam Absent: edema - Routine Skin Exam Present: dry, warm - Routine Neurological Exam Present: alert, oriented X3, moving all extremities - Routine Psychiatric Exam Present: normal affect, normal thought process, good insight, good judgment - Additional findings Additional findings: Laboratory Tests 01/14/18 01/14/18 01/14/18 10:31 14:39 19:29 Glucometer 124 94 77 01/15/18 05:01 Glucometer 103 Assessment and Plan (1) Type 2 diabetes mellitus with hyperglycemia Current visit: Yes Status: Chronic Diabetes remains in good control on current regimen of metformin and insulin. Continue same at home. Should followup in a month with PCP or me.
[2018-01-15] MEDS: DICLOFENAC 1% TOP GEL 100gm TP SCH (09:33)
[2018-01-15] MEDS: ENOXAPARIN 40 MG/0.4 ML INJECTION SQ SCH (09:33)
[2018-01-15] MEDS: SIMVASTATIN 40 MG TABLET PO SCH (09:39)
--- NOTE | 2018-01-15 10:31 | IRU Progress Note ---
- Subjective/Serverity of Illness Date: 01/15/18 Ms. Blair states that she is feeling comfortable going home. I again reminded her to be as active as possible, getting up 3-4 times per hour. Continues to complain of the right knee pain although she believes that the Voltaren may be of some benefit. She has had the right knee previously replaced more than 10 years ago. If it continues to bother her she will need to see orthopedics. Otherwise she denies any shortness of breath or chest pain. She is pleasant and cooperative. Exam Vital Signs: Temperature 97.8 F 01/15/18 08:18 Pulse Rate 77 01/15/18 08:18 Respiratory Rate 16 01/15/18 08:18 Blood Pressure 128/64 01/15/18 08:18 Pulse Oximetry 96 01/15/18 08:18 Height/Weight/BMI: Height 1.6 m Weight 98.9 kg Body Mass Index 38.6 - Constitutional Present: no acute distress, well nourished, well developed, obese, cooperative - Routine HEENT Exam Eye: Present: EOMI ENT: Present: mucous membranes moist - Routine Neck Exam Present: supple - Routine Respiratory Exam Present: CTA bilaterally. Absent: wheezes - Routine Cardiovascular Exam Present: RRR, S1, S2. Absent: murmur - Routine Abdominal Exam Present: soft, normoactive bowel sounds, non distended. Absent: tenderness - Routine Extremities Exam Present: normal capillary refill Comments: Exam of both knees indicates well-healed surgical scars over both knees. She points to the entire knee area as the location of the discomfort. No effusion is noted. There is no warmth and no redness. - Routine Skin Exam Present: dry, warm - Routine Neurological Exam Present: alert, oriented X3, CN II-XII intact - Routine Psychiatric Exam Present: normal affect IRU A/P (1) Debilitated Current visit: Yes Status: Acute Patient's level of functional activity is improved even over her prior level of home activity. She was encouraged to continue her activity. Home health physical therapy, occupational therapy and fci are arranged. (2) Body mass index (BMI) of greater than 35 to 39.9 with comorbidity Current visit: No Status: Chronic (3) Diastolic CHF, chronic Current visit: Yes Status: Chronic She denies shortness of breath. 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 Has been seen by Dr. hBat who recommends the current insulin and metformin dose. DVT Prophylaxis: Lovenox Resuscitation Status: Full Code - Course Hospital Course: Patel Meng MD: 01/12/18 13:27 Blood sugars are improved. Vulvar candidiasis improved. Reduced cognition noted. Making progress with OT and PT. 01/13/18 11:19 Progressing well with therapy and is standby assist for many activities. Decreased memory is a concern. Blood sugars are doing well. 01/14/18 11:37 Progressing with therapy. Decreased memory continues to be an issue and and family are encouraged to help with diabetes management. Blood sugars improved. 01/15/18 10:31 Blood sugars are doing well. Has done well with therapy and is safe for transfer to her home environment with home health assistance. - Interventions to Obtain Goals PT Treatment Plan: Balance/Proprioception, Functional Activities, Gait Training , Patient/Family Education, Therapeutic Exercise OT Treatment Plan: ADL (Basic Care), Balance Training, IADL, Ther. Exercise for ADL
[2018-01-15] MEDS: ASPIRIN *EC* 81 MG TABLET PO SCH (12:20)
--- NOTE | 2018-01-15 14:43 | Discharge Summary ---
Discharge Information Date of admission: 01/08/18 16:45 Anticipated date of discharge: 01/15/18 Attending Physician: Patel Meng MD Primary care physician: Hien Westfall APRN Consults: 01/08/18 17:09 Dietary Consult [CONS] Routine Comment: Reason For Exam: uncontrolled diabetes Inpatient Diabetic Consult [CONS] Routine Diabetic Diagnosis: E11.65 Uncontrolled T2 DM Diabetic Training: Monitoring Diabetes Goal Setting Comment: your name it, she needs it Physician Consult [CONS] Routine Consulting Provider: Surjit Bhat Reason For Exam: uncontrolled diabetes Ordering Provider has Notified [place]: No Comment: Will notify in a.m. [facility] Consult [CONS] Routine 01/08/18 19:39 Physician Consult [CONS] Routine Consulting Provider: Gayatri Calloway Reason For Exam: medical management Ordering Provider has Notified Baker Bench: No 01/09/18 Spiral Binder Consult [Inpatient Diabetic Consult] [CONS] Routine Diabetic Diagnosis: E11.65 Uncontrolled T2 DM Diabetic Training: Carb Counting Detect Complications Disease Process GDM Management Monitoring Diabetes Nutritional Management Prevent Complications Psychological Adjustment Self-management Support - Discharge Diagnosis (1) Debilitated Status: Acute (2) Body mass index (BMI) of greater than 35 to 39.9 with comorbidity Status: Chronic (3) Diastolic CHF, chronic Status: Chronic (4) Yeast dermatitis Status: Acute (5) Hypertension Status: Chronic (6) Osteoarthritis of knees, bilateral Status: Chronic (7) Type 2 diabetes mellitus with hyperglycemia Status: Chronic 1. Generalized debility 2. Diabetes mellitus type 1, not controlled (type I based on low C-peptide and insulin requirements) 3. Severe yeast dermatitis involving buttock fold and for region and groin, candidiasis 4. Benign essential hypertension 5. Osteoarthritis of knees with continued right knee pain 6. Obesity with BMI 38.6 - Laboratory Labs: 01/09/18 04:53 01/09/18 04:53 History of Present Illness HPI: Ms. Blair is a pleasant 82-year-old female who developed a two-week history of progressive weakness. This came to head when she could not get up off the toilet on 01/05/2018. She was admitted to the hospital via EMS and the emergency department. She was found to have a blood sugar of 580 and evidence of mild diabetic ketoacidosis. She was treated appropriately on acute care with fluids and insulin and continue to demonstrate evidence of multiple functional deficits. She was transferred to acute inpatient rehabilitation on 01/08/2018 for a conference a multidisciplinary approach to her recovery. Hospital Course This is a general summary of the patient's hospital course. For more details refer to the complete medical record. She was admitted to acute inpatient rehabilitation on 01/08/2018. She was followed by the hospitalist service, Dr. Meng, as well as Dr. Surjit Bhat, endocrinology for her diabetes. A multidisciplinary approach was developed for her recovery. Her blood sugars are monitored carefully. She did have some episodes of hypoglycemia and her insulin dose was reduced. Her final insulin dose was NovoLog 26 units with each meal and Lantus 70 units at at bedtime daily. She was instructed by the certified informatics educator and instructed to check her blood sugars 4 times daily and write them down. She had evidence of severe vulvar/groin/buttock yeast dermatitis. This was treated with topical nystatin and did improve significantly. She was self-limiting on therapy quite a bit. She demonstrated lack of motivation. She is not terribly active at home. She does display evidence of reduced short-term memory and her insulin and diabetic management will need to be monitored by her or other family members at home. Her CBC was unremarkable. Her C-peptide was very low at 0.34 implying that she has evolved into a type I diabetic. Blood sugars are monitored carefully and are as noted in the chart. By the time of dismissal her blood sugars were in the 80-100 range. She was able to eat and drink adequately. She complained of right knee pain. There was no evidence of inflammation on examination. She has had both knees replaced previously. We did apply topical Voltaren gel. In addition her family wondered to be on something for the pain besides Tylenol. I did give her a prescription for tramadol 50 mg #30 tablets without refills. The following levels of functional competence are to be considered preliminary information. The reader is encouraged to refer to actual therapy notes and reports for specific details. The patient was followed by physical therapy while on acute inpatient rehabilitation. At the conclusion of her stay, the following functional competencies were identified: She was able to transfer with standby assistance only. She was able to ambulate with a front-wheeled walker with standby assistance over 60 feet. Patient declined to use the ramp or stairs. The patient was followed by occupational therapy while on acute inpatient rehabilitation. At the conclusion of her stay, the following functional competencies were identified: She was able to bathe the standby assistance. Upper body dressing was independent. Lower body dressing was with minimal assistance. She was able to perform toileting functions with minimum assistance. She refused tub or shower transfers on several occasions but ultimately was able to perform with minimum assistance. As noted above, she frequently lacked motivation and required multiple verbal cues to participate. We did arrange for home health PT and OT as well as assisted to monitor her blood sugars. [place] is guarded as her personal motivation is limited. However it is noted that her level of activity was higher here on rehabilitation that was prior to her admission. She has the strength to transfer and ambulate and is encouraged to pursue regular exercise at home. Hospital course: Plan - 01/09/18 Agree with admission to IRU for continued strengthening and improvement in functional abilities. Hospitalist service consulted for continued medical management. Dr. Bhat consulted for continued diabetic management. Monitor blood sugars closely. Patient was started on metformin 500mg BID on 01/06/[address] Bhat with plan to titrate up weekly to 1000mg BID. Orders per Dr. Bhat. Continue NovoLog 30 units TID with meals and lantus 94 units QHS. Insulin adjustments per Dr. Bhat. Continue Metformin 500mg BID. Plan to titrate metformin up weekly until ideal dose of 1000mg BID is achieved - orders per Dr. Bhat. Encourage continued education with informatics educator for improved compliance at home. Will continue other home medications. Monitor blood pressures closely. Continue wound care for skin breakdown to buttock. Previously recommended 3M advanced protectant and Mepilex to the area while frequently repositioning to avoid excess weight to the area. Continue Diflucan and nystatin for yeast. Therapies and pain control per Dr. Meng. Will recheck labs periodically throughout admission. Upon discharge, patient's care will be returned to her PCP, Hien Westfall APRN. Patient is a full code. Time spent with patient: greater than 35 minutes Resuscitation Status: Full Code Discharge Plan - Med Rec/Dispo Referrals/Follow Up: Surjit Bhat MD [Physician] - 1 Week (Call to schedule appointment. Monitor blood sugars closely.) Hien Westfall APRN [Primary Care Provider] - (Hien Westfall APRN on 01/22/18 at 3:30 pm for Hosp. follow-up. [facility] [address] [place] [address]) Prescriptions: New Tramadol [Ultram] 50 mg PO QID PRN #30 tab PRN Reason: Pain Diclofenac Top Gel [Voltaren] 1 applicatio TP QID PRN #1 tube PRN Reason: Pain Insulin Aspart [NovoLOG] 26 unit SQ ACL #2 vial Insulin Aspart [NovoLOG] 26 unit SQ 0800 #2 vial Insulin Aspart [NovoLOG] 26 unit SQ ACS #2 vial Insulin Glargine,Hum.rec.anlog [Lantus] 70 unit SQ HS #10 vial Nystatin Powder [Mycostatin] 1 applicatio TP TID #1 bottle PEG 3350 17gm PACKET [Miralax] 17 gm PO DAILY packet Blood Sugar Diagnostic [Blood Glucose Test Strip] 1 each MC QID #100 strip Pen Needle, Diabetic [Insulin Pen Needle] 1 each MC QID #100 dis.needle Metformin [Glucophage] 500 mg PO BIDWM #60 tab Continue Simvastatin [Zocor] 40 mg PO HS Mapap Extra Strength 500 mg tablet 1,000 mg PO TID Lotrel (amlodipine 5 mg-benazepril 10 mg) capsule 1 cap PO DAILY #90 cap aspirin 81 mg tablet,delayed release 81 mg PO .DAILY @ NOON tab Discontinued Insulin Glargine,Hum.rec.anlog [Basaglar Kwikpen U-100] 94 unit SQ HS #1 bottle - Disposition 01 Discharged Home, Self-Care - Dismissal Complete Discharge Instructions are:: Complete
--- NOTE | 2018-01-15 14:52 | Letter to Referring Physician ---
Dear Malou, This is a brief note to bring you up-to-date on the status of Rehana Blair and her stay on the acute inpatient rehabilitation unit at [facility]. As you are likely aware, this patient was admitted to [facility] acute care with severe weakness and diabetic ketoacidosis with blood sugars over 500. The patient was stabilized while on the acute level and admitted to inpatient rehabilitation unit at [facility] on January 08, 2018. While on inpatient rehabilitation, this patient was seen by occupational therapy and physical therapy and improved overall in their functional ability. We also monitored and managed the patient's diabetes and severe vulvar/buttock fold yeast dermatitis while on Acute Rehab. She was followed by the hospitalist service as well as Dr. Surjit Bhat for her diabetes. Her final dose of insulin is to be NovoLog 26 units with each meal and Lantus 70 units at at bedtime. She was seen by the front desk admin and instructed to check her blood sugars 4 times daily. Additional prescription for test strips etc. was provided to the patient. Please see a copy of the history and physical examination as well as discharge summary faxed separately for further details. She complained of right knee pain. The right knee had previously been replaced. Despite this we utilized topical Voltaren gel as well as prescribed tramadol 50 mg #30 with no refills per request of family. We did arrange for home health for PT and OT and prison. Thank you for allowing us to be involved in this nice patient's care. Please contact me directly should you have any questions regarding their stay on the inpatient rehabilitation unit. Sincerely, Patel Meng M.D.
== END 2018-01-15 13:48 | disposition home health service (06) | DRG 945 ==
PROVIDERS: ADMIT Internal Medicine; ATTEND Internal Medicine